=== PATIENT | male | born 1985 | race Two or more races ===

== ENCOUNTER 2021-07-24 23:22 | Inpatient (IN) ==
--- NOTE | 2021-07-24 23:30 | DR.URIAD ---
HPI Time Seen Time Seen by Provider: 07/24/21 23:28 Complaint Chief Complaint Doctors Comments: 36 y/o male has been fighting covid over the past 10 days. Presents with increasing dyspnea. Gradually worsening over the past few days. No prior h/o lung issues, does not smoke. did not receive vaccinations. Just finished steroids, azithromycin. Having fevers, chills, muscle aches. Denies N/V, but is having diarrhea. Family is ill with covid as well. Chief Complaint:: 36 y/o male diagnosed with covid 10 days ago. COVID-19 Coronavirus risk:travel/contact w/high risk person: Yes Has patient experienced Coronavirus symptoms: Yes Coronavirus symptoms experienced: Fever, Coughing and Shortness of Breath Reviewed Nurses Notes Reviewed: Yes Source History Provided: Patient Mode of Arrival Mode of Arrival: Ambulatory Quality Quality of Cough: Productive, White and Yellow Rhinorrhea: Clear Shortness of Breath: Moderate Associated Signs and Symptoms Other Signs and Symptoms: Chills, Cough, Diarrhea, Fever, Myalgias, Shortness of Breath and Wheeze PMH PMH Past Medical History: No Surgical History: Other (hernia) Social History Does patient currently use any type of tobacco product: No Have you used tobacco products in the last 12 months: No Do you use any recreational Drugs:: No ROS Review of Systems Constitutional: Chills, Fever and Weakness Eyes: No Symptoms Reported ENTM: No Symptoms Reported Respiratoy: Productive Cough, Short of Breath and Wheezing Cardiovascular: No Symptoms Reported Gastrointestinal/Abdominal: Diarrhea Genitourinary: No Symptoms Reported Neurological: Headache and Weakness Musculoskeletal: Muscle Pain Integumentary: No Symptoms Reported Hematologic/Lymphatic: No Symptoms Reported Endocrine: No Symptoms Reported Psychiatric: No Symptoms Reported All Other Systems: Reviewed and Negative PE Vital Signs Vitals: Temperature 101.1 F Pulse Rate 96 Respiratory Rate 30 Blood Pressure 121/67 O2 Sat by Pulse Oximetry 95 General Limitations: No Limitations General Appearance: Alert and In Distress Eyes Eye exam: Normal Appearance ENT ENT Exam: Normal Exam Mouth Exam: Normal Inspection Neck Neck Exam: Normal Inspection and Full ROM; negative Meningismus Respiratory Respiratory Exam: Respiratory Distress Respiratory Exam: Bilateral: Rales Cardiovascular Cardiovascular Exam: Regular Rate, Normal Rhythm and Normal Heart Sounds Extremeties Extremities Exam: Normal Inspection and Full ROM; negative Edema Back Back Exam: Normal Inspection Neurologic Neurological Exam: Alert, Oriented X3 and CN II-XII Intact; negative Motor Sensory Deficit Psychiatric Psychiatric Exam: Normal Affect Skin Skin Exam: Warm and Dry MDM Differential Diagnosis Differential Diagnosis: Pneumonia (covid, bacterial, PE) and URI COURSE Treatment Treatment: 36 y/o male diagnosed with covid, ill x 10 days. Pulse ox 79-80% on arrival. Placed on oxygen. W/u initiated. CXR with bilateral infiltrartes. CBC acceptable. Chemistries show glucose of 303 (recently finished steroids), elevated AST/ALT in the 200s. Discussed with the covering hospitalist, Dr. Quinn, will admit. ROR Labs Reviewed Laboratory Results Reviewed?: Yes Result Diagrams: 07/24/21 23:40 07/24/21 23:40 Laboratory: WBC 7.2 X10^3/uL (3.6-10.0) 07/24/21 23:40 RBC 5.58 X10^6/uL (4.7-6.0) 07/24/21 23:40 Hgb 16.1 g/dL (13.5-18.0) 07/24/21 23:40 Hct 46.0 % (42.0-54.0) 07/24/21 23:40 MCV 82.5 fL (80.0-100.0) 07/24/21 23:40 MCH 28.9 pg (27.0-34.0) 07/24/21 23:40 MCHC 35.0 g/dL (33.0-35.0) 07/24/21 23:40 RDW 13.3 % (11.6-16.5) 07/24/21 23:40 Plt Count 308 X10^3/uL (150.0-450.0) 07/24/21 23:40 MPV 8.3 fL (7.4-11.0) 07/24/21 23:40 Neut % (Auto) 80.3 % (42.0-75.0) H 07/24/21 23:40 Lymph % (Auto) 14.3 % (21.0-51.0) L 07/24/21 23:40 [place] % (Auto) 4.8 % (0.0-13.0) 07/24/21 23:40 Eos % (Auto) 0.2 % (0.9-2.9) L 07/24/21 23:40 Baso % (Auto) 0.4 % (0.2-1.0) 07/24/21 23:40 Neut # (Auto) 5.8 x10^3/uL (2.2-4.8) H 07/24/21 23:40 Lymph # (Auto) 1.0 X10^3/uL (1.3-2.9) L 07/24/21 23:40 [place] # (Auto) 0.3 x10^3/uL (0.3-0.8) 07/24/21 23:40 Eos # (Auto) 0.0 x10^3/uL (0.0-0.2) 07/24/21 23:40 Baso # (Auto) 0.0 X10^3/uL (0.0-0.1) 07/24/21 23:40 Absolute Nucleated RBC 0.3 /100WBC 07/24/21 23:40 Sample Site Lr 07/24/21 23:25 ABG pH 7.510 (7.35-7.45) H 07/24/21 23:25 ABG pCO2 30.0 mmHg (35.0-45.0) L 07/24/21 23:25 ABG pO2 45.0 mmHg (80.0-100.0) L* 07/24/21 23:25 ABG HCO3 23.9 mmol/L (22-26) 07/24/21 23:25 ABG O2 Saturation 86.0 % (90-100) L 07/24/21 23:25 ABG Base Excess 1.6 mmol/L (-2.0-2.0) 07/24/21 23:25 Cyril Test Pos 07/24/21 23:25 A-a Gradient 146.0 mmHg 07/24/21 23:25 FiO2 32.0 07/24/21 23:25 Blood Gas Comments Bart well ae 07/24/21 23:25 Sodium 128 mmol/L (136-145) L 07/24/21 23:40 Corrected Sodium 133 mmol/L (136-145) L 07/24/21 23:40 Potassium 3.8 mmol/L (3.5-5.1) 07/24/21 23:40 Chloride 93 mmol/L (98-107) L 07/24/21 23:40 Carbon Dioxide 25.4 mmol/L (21-32) 07/24/21 23:40 BUN 9 mg/dL (7-18) 07/24/21 23:40 Creatinine 1.09 mg/dL (0.70-1.30) 07/24/21 23:40 Est GFR (MDRD) Af Amer > 60 (>60) 07/24/21 23:40 Est GFR (MDRD) Non-Af > 60 (>60) 07/24/21 23:40 Glucose 307 mg/dL (65-99) H 07/24/21 23:40 Lactic Acid 1.7 mmol/L (0.4-2.0) 07/24/21 23:40 Calcium 8.1 mg/dL (8.5-10.1) L 07/24/21 23:40 Corrected Calcium 9.4 mg/dL (8.5-10.1) 07/24/21 23:40 Total Bilirubin 0.80 mg/dL (0.2-1.0) 07/24/21 23:40 AST 268 Units/L (15-37) H 07/24/21 23:40 ALT 222 Units/L (12-78) H 07/24/21 23:40 Alkaline Phosphatase 139 Units/L (46-116) H 07/24/21 23:40 Total Protein 7.7 g/dL (6.4-8.2) 07/24/21 23:40 Albumin 2.4 g/dL (3.4-5.0) L 07/24/21 23:40 Globulin 5.3 g/dL (2.5-4.5) H 07/24/21 23:40 Albumin/Globulin Ratio 0.5 Ratio (1.1-2.1) L 07/24/21 23:40 XRAY XRAY Interpreted by: Both X-ray Results: + bilateral infiltrates Opioid Opioid Risk Tool Total: 0 Total Score Risk Category: Low Risk Copyright: Donavan CHOI predicting aberrant behaviors Diagnosis Discharge Problem: Pneumonia due to COVID-19 virus, Hypoxia
[2021-07-24 23:32] LABS: ABG BASE EXCESS 1.6 mmol/L (-2.0-2.0); ABG HCO3 23.9 mmol/L (22-26)
[2021-07-24 23:33] LABS: ABG ALLEN TEST POS
[2021-07-24] MEDS ORDERED: SOLU-Medrol 125 MG VIAL IVP ONE (23:35)
[2021-07-24] MEDS ORDERED: NS 1000 ML 1,000 ML IV ONE (23:35)
[2021-07-24] MEDS ORDERED: NS 1000 ML 1,000 ML ONE (23:40)
[2021-07-24] MEDS ORDERED: SOLU-Medrol 125 MG VIAL ONE (23:40)
--- NOTE | 2021-07-25 | RAD ---
STUDY: FRONTAL VIEW CHESTCOMPARISON: NoneHISTORY: PT C/O BEING COVID+ 2 WEEKS AGO AND IS HAVING SOB AND COUGHFINDINGS:Diffuse multifocal alveolar airspace disease is seen throughout the right and left lung.The heart size is within normal limits.The mediastinum is unremarkable.There is no evidence of pleural effusion or gross pneumothorax.The trachea is midline.IMPRESSION:1. Imaging features most likely represent COVID-19 pneumonia with possible ARDS.Electronically signed by: Jose Grimes (Jul 24, 2021 23:58:26)
[2021-07-25 00:04] LABS: BASOPHILS % (AUTO) 0.4 % (0.2-1.0); EOSINOPHILS % (AUTO) 0.2 % (0.9-2.9); HEMOGLOBIN 16.1 g/dL (13.5-18.0); LYMPHOCYTES % (AUTO) 14.3 % (21.0-51.0); MEAN CORPUSCULAR HEMOGLOBIN 28.9 pg (27.0-34.0); MEAN CORPUSCULAR VOLUME 82.5 fL (80.0-100.0); MEAN PLATELET VOLUME 8.3 fL (7.4-11.0); MONOCYTES # (AUTO) 0.3 x10^3/uL (0.3-0.8); MONOCYTES % (AUTO) 4.8 % (0.0-13.0); NEUTROPHILS # (AUTO) 5.8 x10^3/uL (2.2-4.8); NEUTROPHILS % (AUTO) 80.3 % (42.0-75.0); PLATELET COUNT 308 X10^3/uL (150.0-450.0); RED BLOOD COUNT 5.58 X10^6/uL (4.7-6.0); RED CELL DISTRIBUTION WIDTH 13.3 % (11.6-16.5); WHITE BLOOD COUNT 7.2 X10^3/uL (3.6-10.0)
[2021-07-25 00:14] LABS: ALANINE AMINOTRANSFERASE 222 Units/L (12-78); ALBUMIN 2.4 g/dL (3.4-5.0); ALKALINE PHOSPHATASE 139 Units/L (46-116); ASPARTATE AMINO TRANSFERASE 268 Units/L (15-37); BLOOD UREA NITROGEN 9 mg/dL (7-18); CALCIUM 8.1 mg/dL (8.5-10.1); CARBON DIOXIDE 25.4 mmol/L (21-32); CHLORIDE 93 mmol/L (98-107); COR CA(FOR HYPOALB) 9.4 mg/dL (8.5-10.1); COR NA(FOR HYPERGLY) 133 mmol/L (136-145); CREATININE 1.09 mg/dL (0.70-1.30); SODIUM 128 mmol/L (136-145); TOTAL PROTEIN 7.7 g/dL (6.4-8.2); eGFR NON BLACK RACES > 60 (>60)
[2021-07-25 00:16] LABS: LACTIC ACID 1.7 mmol/L (0.4-2.0)
[2021-07-25] MEDS ORDERED: ZOSYN VIAL 3.375 GRAMS IV ONE ×2 (02:24→08:57)
[2021-07-25] MEDS ORDERED: NS 1000 ML 1,000 ML ONE ×2 (02:25→15:55)
[2021-07-25] MEDS ORDERED: NS 100 ML IV + SPIKE MINIBAG* 100 ML IV ONE ×3 (02:25→08:57)
[2021-07-25] MEDS: NS 1000 ML 1,000 ML IV SCH ×2 (02:32→16:45)
[2021-07-25] MEDS: LOVENOX INJ 30 MG SYR SC SCH ×3 (02:34→21:10)
[2021-07-25] MEDS ORDERED: LOVENOX INJ 30 MG SYR SC ONE ×2 (02:35→07:27)
[2021-07-25] MEDS ORDERED: NS 100 ML IV 100 ML ONE ×4 (02:37→15:57)
[2021-07-25] MEDS ORDERED: ASCORBIC ACID INJ MULTI-DOSE VIAL IV ONE ×3 (02:38→15:58)
[2021-07-25] MEDS: ASCORBIC ACID INJ MULTI-DOSE VIAL 1,500 MG in NS 100 ML IV 100 ML IV SCH ×4 (02:40→21:12)
[2021-07-25] MEDS ORDERED: REMDESIVIR 200 MG in NS 250 ML IV 250 ML IV ONE (03:31)
[2021-07-25] MEDS ORDERED: REMDESIVIR IV ONE ×2 (03:33→07:27)
[2021-07-25] MEDS ORDERED: NS 250 ML IV 250 ML IV ONE (03:34)
[2021-07-25 03:51] LABS: BASOPHILS % (AUTO) 0.3 % (0.2-1.0); HEMATOCRIT 37.6 % (42.0-54.0); HEMOGLOBIN 13.1 g/dL (13.5-18.0); LYMPHOCYTES # (AUTO) 0.8 X10^3/uL (1.3-2.9); LYMPHOCYTES % (AUTO) 9.6 % (21.0-51.0); MEAN CORPUSCULAR HEMOGLOBIN 28.6 pg (27.0-34.0); MEAN CORPUSCULAR HGB CONC 34.7 g/dL (33.0-35.0); MEAN CORPUSCULAR VOLUME 82.4 fL (80.0-100.0); MEAN PLATELET VOLUME 7.6 fL (7.4-11.0); MONOCYTES # (AUTO) 0.3 x10^3/uL (0.3-0.8); MONOCYTES % (AUTO) 3.2 % (0.0-13.0); NEUTROPHILS # (AUTO) 7.6 x10^3/uL (2.2-4.8); NEUTROPHILS % (AUTO) 86.9 % (42.0-75.0); PLATELET COUNT 350 X10^3/uL (150.0-450.0); RED BLOOD COUNT 4.57 X10^6/uL (4.7-6.0); RED CELL DISTRIBUTION WIDTH 13.3 % (11.6-16.5); WHITE BLOOD COUNT 8.7 X10^3/uL (3.6-10.0)
[2021-07-25 04:02] LABS: ALANINE AMINOTRANSFERASE 215 Units/L (12-78); ALBUMIN 2.3 g/dL (3.4-5.0); ALKALINE PHOSPHATASE 134 Units/L (46-116); ASPARTATE AMINO TRANSFERASE 227 Units/L (15-37); BLOOD UREA NITROGEN 10 mg/dL (7-18); CALCIUM 7.7 mg/dL (8.5-10.1); CARBON DIOXIDE 26.8 mmol/L (21-32); CHLORIDE 97 mmol/L (98-107); COR CA(FOR HYPOALB) 9.1 mg/dL (8.5-10.1); COR NA(FOR HYPERGLY) 137 mmol/L (136-145); CREATININE 1.05 mg/dL (0.70-1.30); SODIUM 132 mmol/L (136-145); TOTAL PROTEIN 7.1 g/dL (6.4-8.2); TROPONIN I < 0.02 ng/mL (0-1.5); eGFR NON BLACK RACES > 60 (>60)
[2021-07-25] MEDS ORDERED: SOLU-Medrol 40 MG VIAL ONE ×2 (05:28→05:32)
[2021-07-25] MEDS ORDERED: VIBRAMYCIN PO ONE ×2 (05:28→07:26)
[2021-07-25] MEDS: VIBRAMYCIN PO SCH ×2 (05:35→21:10)
[2021-07-25] MEDS ORDERED: ZOSYN VIAL 3.375 GRAMS 3.375 G in NS 100 ML IV + SPIKE MINIBAG* 100 ML IV SCH (06:00)
[2021-07-25] MEDS ORDERED: SOLU-Medrol 40 MG VIAL IVP SCH (06:00)
[2021-07-25] MEDS ORDERED: SOLU-Medrol 125 MG VIAL ONE (07:26)
[2021-07-25] MEDS ORDERED: TRICOR TAB 160 MG ONE (07:27)
[2021-07-25] MEDS ORDERED: PEPCID TAB 40 MG ONE (07:27)
[2021-07-25] MEDS ORDERED: VITAMIN D3 125 mcg (5,000 UNITS) ONE (07:27)
[2021-07-25] MEDS ORDERED: ZINC SULFATE ONE (07:27)
[2021-07-25] MEDS: PEPCID TAB 40 MG PO SCH ×2 (08:29→21:10)
[2021-07-25] MEDS: ZINC SULFATE PO SCH ×2 (08:29→21:12)
[2021-07-25] MEDS ORDERED: VITAMIN A PO SCH (09:00)
[2021-07-25] MEDS ORDERED: TRICOR TAB 160 MG PO SCH (09:00)
[2021-07-25] MEDS ORDERED: VITAMIN D (1.25MG) PO SCH (09:00)
[2021-07-25] MEDS: BROVANA IN SCH ×2 (09:10→21:32)
[2021-07-25] MEDS: PULMICORT NEB TX 0.5 MG NEB SCH ×2 (09:10→21:32)
[2021-07-25] MEDS: ZOSYN VIAL 3.375 GRAMS 3.375 G in NS 100 ML IV + SPIKE MINIBAG* 100 ML IV SCH ×2 (11:42→21:12)
--- NOTE | 2021-07-25 13:05 | CT ---
HISTORYPT C/O SOB,COUGH AND FEVER. COVID PNEUMONIA, ELEVATED D-DIMER evaluate pulmonary embolusSTUDYCTA CHESTCOMPARISONChest radiograph 07/25/2021TECHNIQUEMultiple CT axial images of the chest were obtained with IV contrast. Coronal and sagittal images were reconstructed. 3D reconstructions using axial MIPS imaging was performed and reviewed. Dose reduction techniques included Automated Exposure Control (AEC) and adjustment of mA and kV.Stenoses are measured using NASCET criteria.FINDINGSParts of the pulmonary arteries are identified to segmental branches. Few areas are not well seen because of the amount of artifact. There are no pulmonary emboli.The heart is normal in size. The pulmonary artery and aorta have a normal caliber. Mediastinal lymph nodes are likely reactive due to the patient's lung disease.The thyroid has a normal size and configuration. No axillary mass or significant axillary lymphadenopathy is identified.Bilateral patchy areas of opacity are present compatible with bronchopneumonia. No pleural effusion or pneumothorax.Limited views of the upper abdomen show no significant abnormality. No significant bone abnormality.IMPRESSION1. No pulmonary emboli2. Bronchopneumonia with reactive lymphadenopathyElectronically signed by: Seferino Barry (Jul 25, 2021 13:03:51)
--- NOTE | 2021-07-25 13:05 | RAD ---
HISTORYCOVID-19 pneumoniaSTUDYPortable AP [id number]/2020FINDINGSStable normal heart size with similar extent and distribution of bilateral infiltrates. No evidence for developing pleural fluid or pneumothorax.IMPRESSIONNo change in appearance of bilateral pneumonia.Electronically signed by: PRIYANKA AYALA (Jul 25, 2021 13:02:49)
[2021-07-25] MEDS: SOLU-Medrol 125 MG VIAL IVP SCH ×2 (13:45→21:10)
[2021-07-25] MEDS ORDERED: SOLU-Medrol 125 MG VIAL IVP SCH (14:00)
--- NOTE | 2021-07-25 15:06 | DR.H&P ---
H&P History & Physical for Day of: H&P Date: 07/25/21 Chief Complaint Chief Complaint: cough, shortness of breath Allergies Allergies Allergy/AdvReac Type Severity Reaction Status Date / Time No Known Drug Allergies Allergy Verified 07/25/21 00:18 History of Present Illness History of Present Illness: Mr Ann is a 36y/o male with no pertinent medical history presented with worsening dyspnea and cough. He tested positive for covid around 10 days ago and was being treated outpatient. He completed a z-pack and steroids. He states his breathing got worse so he had to come to the ER. He is currently on NRB at 15L. He did have a fever, temp 101.2 earlier but afebrile right now. He states he feels much better. ER work-up - Labs: WBC:8.7 Hgb: 13.1 Glucose 313 Na: 132 Cl 97 lactic acid: 1.7 D-dimer: 1.19 - Trop (-) AST/ALT: 227/215 - AB.51/30/45/23 - CXR: covid pneumonia Plan: admit to icu with covid protocol. Wean O2 as tolerated to keep sats >92%. Order CTA to rule out PE. Continue nebs, pulmicort and IS. Continue IV Solumedrol, Zosyn, Remdesivir and doxycycline. Continue lovenox and vitamin support. Continue hydration. Will add SSI. Monitor AM labs/imaging. Time spent for clinical assessment, reviewing labs/imaging, physical exam, decision making and documentation greater than 75 mins. Past Surgical History Surgical History: Other (hernia) Social History Does patient currently use any type of tobacco product: No Have you used tobacco products in the last 12 months: No Type of Tobacco Use: None Does any household member use tobacco: No Alcohol Use: None Drug Use: None Prescription drug monitoring program results: PDMP reviewed and no concerns identified Medications Home Medications: No Known Drug Allergies Allergy (Verified 07/25/21 00:18) Labs Result Diagrams: 07/25/21 03:42 07/25/21 03:42 Labs: Laboratory WBC 8.7 X10^3/uL (3.6-10.0) 07/25/21 03:42 RBC 4.57 X10^6/uL (4.7-6.0) L 07/25/21 03:42 Hgb 13.1 g/dL (13.5-18.0) L D 07/25/21 03:42 Hct 37.6 % (42.0-54.0) L 07/25/21 03:42 MCV 82.4 fL (80.0-100.0) 07/25/21 03:42 MCH 28.6 pg (27.0-34.0) 07/25/21 03:42 MCHC 34.7 g/dL (33.0-35.0) 07/25/21 03:42 RDW 13.3 % (11.6-16.5) 07/25/21 03:42 Plt Count 350 X10^3/uL (150.0-450.0) 07/25/21 03:42 MPV 7.6 fL (7.4-11.0) 07/25/21 03:42 Neut % (Auto) 86.9 % (42.0-75.0) H 07/25/21 03:42 Lymph % (Auto) 9.6 % (21.0-51.0) L 07/25/21 03:42 [place] % (Auto) 3.2 % (0.0-13.0) 07/25/21 03:42 Eos % (Auto) 0.0 % (0.9-2.9) L 07/25/21 03:42 Baso % (Auto) 0.3 % (0.2-1.0) 07/25/21 03:42 Neut # (Auto) 7.6 x10^3/uL (2.2-4.8) H 07/25/21 03:42 Lymph # (Auto) 0.8 X10^3/uL (1.3-2.9) L 07/25/21 03:42 [place] # (Auto) 0.3 x10^3/uL (0.3-0.8) 07/25/21 03:42 Eos # (Auto) 0.0 x10^3/uL (0.0-0.2) 07/25/21 03:42 Baso # (Auto) 0.0 X10^3/uL (0.0-0.1) 07/25/21 03:42 Absolute Nucleated RBC 0.1 /100WBC 07/25/21 03:42 D-Dimer 1.19 ug/ml (0.0-0.57) H* 07/25/21 10:30 Sample Site Lr 07/24/21 23:25 ABG pH 7.510 (7.35-7.45) H 07/24/21 23:25 ABG pCO2 30.0 mmHg (35.0-45.0) L 07/24/21 23:25 ABG pO2 45.0 mmHg (80.0-100.0) L* 07/24/21 23:25 ABG HCO3 23.9 mmol/L (22-26) 07/24/21 23:25 ABG O2 Saturation 86.0 % (90-100) L 07/24/21 23:25 ABG Base Excess 1.6 mmol/L (-2.0-2.0) 07/24/21 23:25 Cyril Test Pos 07/24/21 23:25 A-a Gradient 146.0 mmHg 07/24/21 23:25 FiO2 32.0 07/24/21 23:25 Blood Gas Comments Bart well ae 07/24/21 23:25 Sodium 132 mmol/L (136-145) L 07/25/21 03:42 Corrected Sodium 137 mmol/L (136-145) 07/25/21 03:42 Potassium 4.1 mmol/L (3.5-5.1) 07/25/21 03:42 Chloride 97 mmol/L (98-107) L 07/25/21 03:42 Carbon Dioxide 26.8 mmol/L (21-32) 07/25/21 03:42 BUN 10 mg/dL (7-18) 07/25/21 03:42 Creatinine 1.05 mg/dL (0.70-1.30) 07/25/21 03:42 Est GFR (MDRD) Af Amer > 60 (>60) 07/25/21 03:42 Est GFR (MDRD) Non-Af > 60 (>60) 07/25/21 03:42 Glucose 313 mg/dL (65-99) H 07/25/21 03:42 Lactic Acid 1.7 mmol/L (0.4-2.0) 07/24/21 23:40 Calcium 7.7 mg/dL (8.5-10.1) L 07/25/21 03:42 Corrected Calcium 9.1 mg/dL (8.5-10.1) 07/25/21 03:42 Total Bilirubin 0.70 mg/dL (0.2-1.0) 07/25/21 03:42 AST 227 Units/L (15-37) H 07/25/21 03:42 ALT 215 Units/L (12-78) H 07/25/21 03:42 Alkaline Phosphatase 134 Units/L (46-116) H 07/25/21 03:42 Troponin I < 0.02 ng/mL (0-1.5) 07/25/21 03:42 Total Protein 7.1 g/dL (6.4-8.2) 07/25/21 03:42 Albumin 2.3 g/dL (3.4-5.0) L 07/25/21 03:42 Globulin 4.8 g/dL (2.5-4.5) H 07/25/21 03:42 Albumin/Globulin Ratio 0.5 Ratio (1.1-2.1) L 07/25/21 03:42 SARS-CoV-2 (PCR) Positive (NEGATIVE) A 07/25/21 01:46 Influenza Type A (PCR) Negative (NEGATIVE) 07/25/21 01:46 Influenza Type B (PCR) Negative (NEGATIVE) 07/25/21 01:46 RSV (PCR) Negative (NEGATIVE) 07/25/21 01:46 Review of Systems Constitutional: Fever, Chills, Weakness and Malaise Eyes: No Symptoms Reported ENT: No Symptoms Reported Respiratory: Cough, Shortness of Breath and SOB with Excertion Cardiovascular: No Symptoms Reported Gastrointestinal: No Symptoms Reported Genitourinary: No Symptoms Reported Musculoskeletal: No Symptoms Reported Skin: No Symptoms Reported Neurological: No Symptoms Reported Physical Exam Vital Signs: Temperature 97.8 F Pulse Rate [Left Brachial] 83 Pulse Rate 81 Respiratory Rate 20 Blood Pressure [Left Arm] 133/73 Blood Pressure 117/59 O2 Sat by Pulse Oximetry 96 Oriented: Normal Eyes: Normal Ear: Normal Nose: Normal Throat: Normal Respiratory: Diminished Throughout and Wheezes Throughout Cardiovascular: Normal Auscultation: Bowel Sounds: Normal Palpation: Normal Tenderness: Normal Skin: Normal Musculoskeletal: Normal Psychiatric: Normal Mood Description: Calm Speech Pattern: Clear and Appropriate Assessment/Plan (1) Pneumonia due to COVID-19 virus: Status: Acute (2) Acute respiratory failure with hypoxia: Status: Acute Review H&P Reviewed: Yes Patient was examined?: Yes
[2021-07-25] MEDS ORDERED: HumuLIN R ONE (16:13)
[2021-07-25] MEDS: HumuLIN R SC PRN ×2 (16:14→22:28)
[2021-07-26] MEDS: NS 1000 ML 1,000 ML IV SCH (03:21)
[2021-07-26] MEDS: ASCORBIC ACID INJ MULTI-DOSE VIAL 1,500 MG in NS 100 ML IV 100 ML IV SCH ×4 (03:21→22:00)
[2021-07-26] MEDS: SOLU-Medrol 125 MG VIAL IVP SCH ×3 (05:37→22:01)
[2021-07-26] MEDS: ZOSYN VIAL 3.375 GRAMS 3.375 G in NS 100 ML IV + SPIKE MINIBAG* 100 ML IV SCH ×3 (05:37→22:00)
[2021-07-26 06:22] LABS: BASOPHILS % (AUTO) 0.3 % (0.2-1.0); HEMATOCRIT 36.6 % (42.0-54.0); HEMOGLOBIN 12.5 g/dL (13.5-18.0); LYMPHOCYTES # (AUTO) 1.4 X10^3/uL (1.3-2.9); MEAN CORPUSCULAR HEMOGLOBIN 29.3 pg (27.0-34.0); MEAN CORPUSCULAR HGB CONC 34.3 g/dL (33.0-35.0); MEAN CORPUSCULAR VOLUME 85.6 fL (80.0-100.0); MEAN PLATELET VOLUME 8.1 fL (7.4-11.0); MONOCYTES % (AUTO) 7.3 % (0.0-13.0); NEUTROPHILS # (AUTO) 11.7 x10^3/uL (2.2-4.8); NEUTROPHILS % (AUTO) 82.4 % (42.0-75.0); PLATELET COUNT 426 X10^3/uL (150.0-450.0); RED BLOOD COUNT 4.28 X10^6/uL (4.7-6.0); RED CELL DISTRIBUTION WIDTH 13.4 % (11.6-16.5); WHITE BLOOD COUNT 14.2 X10^3/uL (3.6-10.0)
[2021-07-26 06:34] LABS: ALANINE AMINOTRANSFERASE 185 Units/L (12-78); ALBUMIN 2.1 g/dL (3.4-5.0); ALKALINE PHOSPHATASE 121 Units/L (46-116); ASPARTATE AMINO TRANSFERASE 88 Units/L (15-37); BLOOD UREA NITROGEN 17 mg/dL (7-18); CALCIUM 8.3 mg/dL (8.5-10.1); CARBON DIOXIDE 26.4 mmol/L (21-32); CHLORIDE 101 mmol/L (98-107); COR CA(FOR HYPOALB) 9.8 mg/dL (8.5-10.1); COR NA(FOR HYPERGLY) 141 mmol/L (136-145); CREATININE 0.91 mg/dL (0.70-1.30); SODIUM 136 mmol/L (136-145); TOTAL PROTEIN 6.6 g/dL (6.4-8.2); eGFR NON BLACK RACES > 60 (>60)
[2021-07-26] MEDS: HumuLIN R SC PRN ×4 (06:35→21:45)
--- NOTE | 2021-07-26 07:58 | RAD ---
HISTORYCOVID PNEUMONIASTUDYCHEST, 1 [id number] bilateral areas of opacity represent bronchopneumonia. There may be a slight progression since yesterday.No significant pleural effusion or pneumothorax.The heart size is magnified.Bones are unremarkable.IMPRESSION1. Progressed bronchopneumoniaElectronically signed by: Seferino Barry (Jul 26, 2021 07:56:44)
[2021-07-26] MEDS ORDERED: NS 50 ML IV 50 ML IV ONE (08:22)
[2021-07-26] MEDS: VIBRAMYCIN PO SCH ×2 (08:30→21:59)
[2021-07-26] MEDS: PEPCID TAB 40 MG PO SCH ×2 (08:30→21:58)
[2021-07-26] MEDS: BROVANA IN SCH ×2 (08:45→20:40)
[2021-07-26] MEDS: PULMICORT NEB TX 0.5 MG NEB SCH ×2 (08:45→20:40)
[2021-07-26 09:51] LABS: ABG ALLEN TEST POS; ABG BASE EXCESS 0.6 mmol/L (-2.0-2.0); ABG HCO3 24.5 mmol/L (22-26)
[2021-07-26] MEDS: REMDESIVIR 100 MG in NS 100 ML IV + SPIKE MINIBAG* 120 ML IV SCH (10:10)
[2021-07-26] MEDS: LOVENOX INJ 30 MG SYR SC SCH ×2 (12:15→21:59)
[2021-07-26] MEDS: ZINC SULFATE PO SCH ×2 (12:15→21:59)
--- NOTE | 2021-07-26 16:19 | PCM.PROG ---
Progress Note Progress Note for Day of Date of Exam: 07/26/21 Subjective Subjective: Patient seen at bedside, no acute events overnight. He states he feels better. He has some productive cough. Denies fever or chills. His appetite is better. He is still on 100% non-rebreather. His sats right now are between 85-88%. He does not appear to be in any distress. Denies N/V/D. Labs: WBC: 14.2 Hgb 12.5 Glucose 309 BUN/Cr: 17/0.91 CTA: no PE, bilateral opacities CXR: increase in bronchopneumonia Plan: Will switch to HHFNC to keep sats > 92%. Repeat ABG. Continue nebs, pulmicort and IS. Continue IV antibiotics, Remdesivir and Solumedrol. Continue vitamin support and lovenox. Monitor AM labs and imaging. Time spent for clinical assessment, reviewing labs/imaging, physical exam, decision making greater than 45 mins. Past Medical Family Social History Past Med/Fam/Surg Hx: No changes since H&P Allergies: Allergies No Known Drug Allergies Allergy (Verified 07/25/21 00:18) Review of Systems ROS: No change since H&P Vital Signs and I&O's Vital Signs: Temperature 98.4 F Pulse Rate [Left Brachial] 72 Pulse Rate 89 Respiratory Rate 18 Blood Pressure [Left Arm] 114/64 Blood Pressure 117/59 O2 Sat by Pulse Oximetry 91 Intake and Output: Intake & Output 07/23/21 07/24/21 07/25/21 07/26/21 23:59 23:59 23:59 23:59 Intake Total 4504 / 4504 525 / 525 Balance 4504 / 4504 525 / 525 Physical Exam Oriented: Normal Eyes: Normal Ear: Normal Nose: Normal Throat: Normal Respiratory: Generalized and Diminished Cardiovascular: Normal Auscultation: Bowel Sounds: Normal Tenderness: Normal Skin: Normal Musculoskeletal: Normal Psychiatric: Normal Mood Description: Calm Speech Pattern: Clear and Appropriate Laboratory and Diagnostics Result Diagrams: 07/26/21 05:30 07/26/21 05:30 Labs: 07/24/21 23:49 Blood Blood Culture - Preliminary 07/24/21 23:40 Blood Blood Culture - Preliminary Laboratory WBC 14.2 X10^3/uL (3.6-10.0) H 07/26/21 05:30 RBC 4.28 X10^6/uL (4.7-6.0) L 07/26/21 05:30 Hgb 12.5 g/dL (13.5-18.0) L 07/26/21 05:30 Hct 36.6 % (42.0-54.0) L 07/26/21 05:30 MCV 85.6 fL (80.0-100.0) 07/26/21 05:30 MCH 29.3 pg (27.0-34.0) 07/26/21 05:30 MCHC 34.3 g/dL (33.0-35.0) 07/26/21 05:30 RDW 13.4 % (11.6-16.5) 07/26/21 05:30 Plt Count 426 X10^3/uL (150.0-450.0) 07/26/21 05:30 MPV 8.1 fL (7.4-11.0) 07/26/21 05:30 Neut % (Auto) 82.4 % (42.0-75.0) H 07/26/21 05:30 Lymph % (Auto) 10.0 % (21.0-51.0) L 07/26/21 05:30 [place] % (Auto) 7.3 % (0.0-13.0) 07/26/21 05:30 Eos % (Auto) 0.0 % (0.9-2.9) L 07/26/21 05:30 Baso % (Auto) 0.3 % (0.2-1.0) 07/26/21 05:30 Neut # (Auto) 11.7 x10^3/uL (2.2-4.8) H 07/26/21 05:30 Lymph # (Auto) 1.4 X10^3/uL (1.3-2.9) 07/26/21 05:30 [place] # (Auto) 1.0 x10^3/uL (0.3-0.8) H 07/26/21 05:30 Eos # (Auto) 0.0 x10^3/uL (0.0-0.2) 07/26/21 05:30 Baso # (Auto) 0.0 X10^3/uL (0.0-0.1) 07/26/21 05:30 Absolute Nucleated RBC 0.1 /100WBC 07/26/21 05:30 D-Dimer 1.19 ug/ml (0.0-0.57) H* 07/25/21 10:30 Sample Site Lr 07/26/21 09:45 ABG pH 7.440 (7.35-7.45) 07/26/21 09:45 ABG pCO2 36.0 mmHg (35.0-45.0) 07/26/21 09:45 ABG pO2 55.0 mmHg (80.0-100.0) L 07/26/21 09:45 ABG HCO3 24.5 mmol/L (22-26) 07/26/21 09:45 ABG O2 Saturation 89.0 % (90-100) L 07/26/21 09:45 ABG Base Excess 0.6 mmol/L (-2.0-2.0) 07/26/21 09:45 Cyril Test Pos 07/26/21 09:45 A-a Gradient 613.0 mmHg 07/26/21 09:45 FiO2 100.0 07/26/21 09:45 Blood Gas Comments Pt roberto well cdn 07/26/21 09:45 Sodium 136 mmol/L (136-145) 07/26/21 05:30 Corrected Sodium 141 mmol/L (136-145) 07/26/21 05:30 Potassium 3.7 mmol/L (3.5-5.1) 07/26/21 05:30 Chloride 101 mmol/L (98-107) 07/26/21 05:30 Carbon Dioxide 26.4 mmol/L (21-32) 07/26/21 05:30 BUN 17 mg/dL (7-18) 07/26/21 05:30 Creatinine 0.91 mg/dL (0.70-1.30) 07/26/21 05:30 Est GFR (MDRD) Af Amer > 60 (>60) 07/26/21 05:30 Est GFR (MDRD) Non-Af > 60 (>60) 07/26/21 05:30 Glucose 309 mg/dL (65-99) H 07/26/21 05:30 POC Glucose (mg/dL) 342 mg/dL (65-99) H 07/26/21 12:16 Lactic Acid 1.7 mmol/L (0.4-2.0) 07/24/21 23:40 Calcium 8.3 mg/dL (8.5-10.1) L 07/26/21 05:30 Corrected Calcium 9.8 mg/dL (8.5-10.1) 07/26/21 05:30 Total Bilirubin 0.50 mg/dL (0.2-1.0) 07/26/21 05:30 AST 88 Units/L (15-37) H 07/26/21 05:30 ALT 185 Units/L (12-78) H 07/26/21 05:30 Alkaline Phosphatase 121 Units/L (46-116) H 07/26/21 05:30 Troponin I < 0.02 ng/mL (0-1.5) 07/25/21 03:42 C-Reactive Protein 129.90 mg/L (0-3.0) H 07/26/21 05:30 Total Protein 6.6 g/dL (6.4-8.2) 07/26/21 05:30 Albumin 2.1 g/dL (3.4-5.0) L 07/26/21 05:30 Globulin 4.5 g/dL (2.5-4.5) 07/26/21 05:30 Albumin/Globulin Ratio 0.5 Ratio (1.1-2.1) L 07/26/21 05:30 SARS-CoV-2 (PCR) Positive (NEGATIVE) A 07/25/21 01:46 Influenza Type A (PCR) Negative (NEGATIVE) 07/25/21 01:46 Influenza Type B (PCR) Negative (NEGATIVE) 07/25/21 01:46 RSV (PCR) Negative (NEGATIVE) 07/25/21 01:46 Plan (1) Pneumonia due to COVID-19 virus: Status: Acute (2) Acute respiratory failure with hypoxia: Status: Acute
[2021-07-27] MEDS: NS 1000 ML 1,000 ML IV SCH (02:43)
[2021-07-27] MEDS: SOLU-Medrol 125 MG VIAL IVP SCH ×4 (02:43→21:03)
[2021-07-27] MEDS: ASCORBIC ACID INJ MULTI-DOSE VIAL 1,500 MG in NS 100 ML IV 100 ML IV SCH ×4 (02:43→21:04)
[2021-07-27 05:08] LABS: BASOPHILS % (AUTO) 0.2 % (0.2-1.0); HEMATOCRIT 36.9 % (42.0-54.0); LYMPHOCYTES # (AUTO) 1.5 X10^3/uL (1.3-2.9); LYMPHOCYTES % (AUTO) 7.9 % (21.0-51.0); MEAN CORPUSCULAR HEMOGLOBIN 29.6 pg (27.0-34.0); MEAN CORPUSCULAR HGB CONC 35.1 g/dL (33.0-35.0); MEAN CORPUSCULAR VOLUME 84.3 fL (80.0-100.0); MEAN PLATELET VOLUME 8.1 fL (7.4-11.0); MONOCYTES # (AUTO) 0.7 x10^3/uL (0.3-0.8); MONOCYTES % (AUTO) 3.9 % (0.0-13.0); NEUTROPHILS # (AUTO) 16.7 x10^3/uL (2.2-4.8); PLATELET COUNT 476 X10^3/uL (150.0-450.0); RED BLOOD COUNT 4.38 X10^6/uL (4.7-6.0); RED CELL DISTRIBUTION WIDTH 13.1 % (11.6-16.5); WHITE BLOOD COUNT 18.9 X10^3/uL (3.6-10.0)
[2021-07-27 05:38] LABS: ALANINE AMINOTRANSFERASE 138 Units/L (12-78); ALBUMIN 2.1 g/dL (3.4-5.0); ALKALINE PHOSPHATASE 108 Units/L (46-116); ASPARTATE AMINO TRANSFERASE 46 Units/L (15-37); BLOOD UREA NITROGEN 18 mg/dL (7-18); CALCIUM 8.3 mg/dL (8.5-10.1); CARBON DIOXIDE 25.9 mmol/L (21-32); CHLORIDE 103 mmol/L (98-107); COR CA(FOR HYPOALB) 9.8 mg/dL (8.5-10.1); COR NA(FOR HYPERGLY) 141 mmol/L (136-145); CREATININE 1.04 mg/dL (0.70-1.30); SODIUM 138 mmol/L (136-145); TOTAL PROTEIN 6.3 g/dL (6.4-8.2); eGFR NON BLACK RACES > 60 (>60)
[2021-07-27] MEDS: ZOSYN VIAL 3.375 GRAMS 3.375 G in NS 100 ML IV + SPIKE MINIBAG* 100 ML IV SCH (05:45)
--- NOTE | 2021-07-27 07:57 | RAD ---
HISTORYCOVID PNEUMONIASTUDYCHEST, 1 [id number]/2021FINDINGSThe cardiomediastinal silhouette is stable. Similar bilateral airspace opacities. The bony thorax appears intact.IMPRESSIONNo significant change.Electronically signed by: ANGELO CLEMENTS (Jul 27, 2021 07:54:40)
[2021-07-27] MEDS: PEPCID TAB 40 MG PO SCH ×2 (08:54→21:02)
[2021-07-27] MEDS: LOVENOX INJ 40 MG SYR SC SCH ×2 (08:55→21:03)
[2021-07-27] MEDS: VITAMIN D3 125 mcg (5,000 UNITS) PO SCH (08:55)
[2021-07-27] MEDS: VIBRAMYCIN PO SCH ×2 (08:55→21:03)
[2021-07-27] MEDS: ZINC SULFATE PO SCH ×2 (08:55→21:03)
[2021-07-27] MEDS: VITAMIN A PO SCH (08:55)
[2021-07-27] MEDS: REMDESIVIR 100 MG in NS 100 ML IV + SPIKE MINIBAG* 120 ML IV SCH (08:56)
[2021-07-27] MEDS: BROVANA IN SCH ×2 (09:55→21:40)
[2021-07-27] MEDS: PULMICORT NEB TX 0.5 MG NEB SCH ×2 (09:55→21:40)
--- NOTE | 2021-07-27 10:30 | PCM.PROG ---
Progress Note Progress Note for Day of Date of Exam: 07/27/21 Subjective Subjective: Patient seen at bedside, no acute events overnight. He states he feels better. He is still on NRB at 100%. He has been having productive cough. His sats at this time are between 78-81%. He does not appear to be in any distress. He reports normal appetite. Labs: WBC: 18.9 Hgb 13.0 Glucose 309 BUN/Cr: 18/1.04 Glucose 222 CRP: 72 AST/ALT: 46/138 AB.44/36/55/24.5 CTA: no PE, bilateral opacities CXR: unchanged bilateral pna Plan: Will switch to HHFNC to keep sats > 92%. Continue nebs, pulmicort and IS. Continue IV antibiotics, Remdesivir and Solumedrol. Continue vitamin support and lovenox. Continue insulin for hyperglycemia. Monitor AM labs and imaging. Time spent for clinical assessment, reviewing labs/imaging, physical exam, decision making greater than 45 mins. Past Medical Family Social History Past Med/Fam/Surg Hx: No changes since H&P Allergies: Allergies No Known Drug Allergies Allergy (Verified 07/25/21 00:18) Review of Systems ROS: No change since H&P Vital Signs and I&O's Vital Signs: Temperature 97.8 F Pulse Rate [Left Brachial] 72 Pulse Rate 69 Respiratory Rate 20 Blood Pressure [Left Arm] 122/79 Blood Pressure 117/59 O2 Sat by Pulse Oximetry 86 Intake and Output: Intake & Output 07/24/21 07/25/21 07/26/21 07/27/21 23:59 23:59 23:59 23:59 Intake Total 4504 / 4504 6439 / 6439 560 / 560 Balance 4504 / 4504 6439 / 6439 560 / 560 Physical Exam Oriented: Normal Eyes: Normal Ear: Normal Nose: Normal Throat: Normal Respiratory: Generalized and Diminished Cardiovascular: Normal Auscultation: Bowel Sounds: Normal Tenderness: Normal Skin: Normal Musculoskeletal: Normal Psychiatric: Normal Mood Description: Calm Speech Pattern: Clear and Appropriate Laboratory and Diagnostics Result Diagrams: 07/27/21 04:35 07/27/21 04:35 Labs: 07/24/21 23:49 Blood Blood Culture - Preliminary 07/24/21 23:40 Blood Blood Culture - Preliminary Laboratory WBC 18.9 X10^3/uL (3.6-10.0) H 07/27/21 04:35 RBC 4.38 X10^6/uL (4.7-6.0) L 07/27/21 04:35 Hgb 13.0 g/dL (13.5-18.0) L 07/27/21 04:35 Hct 36.9 % (42.0-54.0) L 07/27/21 04:35 MCV 84.3 fL (80.0-100.0) 07/27/21 04:35 MCH 29.6 pg (27.0-34.0) 07/27/21 04:35 MCHC 35.1 g/dL (33.0-35.0) H 07/27/21 04:35 RDW 13.1 % (11.6-16.5) 07/27/21 04:35 Plt Count 476 X10^3/uL (150.0-450.0) H 07/27/21 04:35 Plt Count Comment Cancelled 07/27/21 04:35 MPV 8.1 fL (7.4-11.0) 07/27/21 04:35 Neut % (Auto) 88.0 % (42.0-75.0) H 07/27/21 04:35 Lymph % (Auto) 7.9 % (21.0-51.0) L 07/27/21 04:35 [place] % (Auto) 3.9 % (0.0-13.0) 07/27/21 04:35 Eos % (Auto) 0.0 % (0.9-2.9) L 07/27/21 04:35 Baso % (Auto) 0.2 % (0.2-1.0) 07/27/21 04:35 Neut # (Auto) 16.7 x10^3/uL (2.2-4.8) H 07/27/21 04:35 Lymph # (Auto) 1.5 X10^3/uL (1.3-2.9) 07/27/21 04:35 [place] # (Auto) 0.7 x10^3/uL (0.3-0.8) 07/27/21 04:35 Eos # (Auto) 0.0 x10^3/uL (0.0-0.2) 07/27/21 04:35 Baso # (Auto) 0.0 X10^3/uL (0.0-0.1) 07/27/21 04:35 Absolute Nucleated RBC 0.1 /100WBC 07/27/21 04:35 Total Counted Cancelled 07/27/21 04:35 Neutrophils % (Manual) Cancelled 07/27/21 04:35 Band Neutrophils % Cancelled 07/27/21 04:35 Lymphocytes % (Manual) Cancelled 07/27/21 04:35 Monocytes % (Manual) Cancelled 07/27/21 04:35 Eosinophils % (Manual) Cancelled 07/27/21 04:35 Basophils % (Manual) Cancelled 07/27/21 04:35 Metamyelocytes % Cancelled 07/27/21 04:35 Myelocytes % Cancelled 07/27/21 04:35 Promyelocytes % Cancelled 07/27/21 04:35 Nucleated RBCs Cancelled 07/27/21 04:35 Atypical Lymphocytes Cancelled 07/27/21 04:35 Blast Cells Cancelled 07/27/21 04:35 Smudge Cells Cancelled 07/27/21 04:35 Toxic Granulation Cancelled 07/27/21 04:35 Dohle Bodies Cancelled 07/27/21 04:35 Pat Rods Cancelled 07/27/21 04:35 Plt Clumps, EDTA Cancelled 07/27/21 04:35 Giant Platelets Cancelled 07/27/21 04:35 Plt Morphology Comment Cancelled 07/27/21 04:35 RBC Morphology Cancelled 07/27/21 04:35 Dimorphic RBCs Cancelled 07/27/21 04:35 Polychromasia Cancelled 07/27/21 04:35 Hypochromasia Cancelled 07/27/21 04:35 Poikilocytosis Cancelled 07/27/21 04:35 Basophilic Stippling Cancelled 07/27/21 04:35 Anisocytosis Cancelled 07/27/21 04:35 Microcytosis Cancelled 07/27/21 04:35 Macrocytosis Cancelled 07/27/21 04:35 Spherocytes Cancelled 07/27/21 04:35 Pappenheimer Bodies Cancelled 07/27/21 04:35 Sickle Cells Cancelled 07/27/21 04:35 Target Cells Cancelled 07/27/21 04:35 Tear Drop Cells Cancelled 07/27/21 04:35 Ovalocytes Cancelled 07/27/21 04:35 Stomatocytes Cancelled 07/27/21 04:35 Helmet Cells Cancelled 07/27/21 04:35 [place] Bodies Cancelled 07/27/21 04:35 [place] Rings Cancelled 07/27/21 04:35 [place] Cells Cancelled 07/27/21 04:35 Crenated Cell Cancelled 07/27/21 04:35 Acanthocytes (Spur) Cancelled 07/27/21 04:35 Rouleaux Cancelled 07/27/21 04:35 Schistocytes Cancelled 07/27/21 04:35 D-Dimer 1.19 ug/ml (0.0-0.57) H* 07/25/21 10:30 Sample Site Lr 07/26/21 09:45 ABG pH 7.440 (7.35-7.45) 07/26/21 09:45 ABG pCO2 36.0 mmHg (35.0-45.0) 07/26/21 09:45 ABG pO2 55.0 mmHg (80.0-100.0) L 07/26/21 09:45 ABG HCO3 24.5 mmol/L (22-26) 07/26/21 09:45 ABG O2 Saturation 89.0 % (90-100) L 07/26/21 09:45 ABG Base Excess 0.6 mmol/L (-2.0-2.0) 07/26/21 09:45 Cyril Test Pos 07/26/21 09:45 A-a Gradient 613.0 mmHg 07/26/21 09:45 FiO2 100.0 07/26/21 09:45 Blood Gas Comments Pt roberto well cdn 07/26/21 09:45 Sodium 138 mmol/L (136-145) 07/27/21 04:35 Corrected Sodium 141 mmol/L (136-145) 07/27/21 04:35 Potassium 3.5 mmol/L (3.5-5.1) 07/27/21 04:35 Chloride 103 mmol/L (98-107) 07/27/21 04:35 Carbon Dioxide 25.9 mmol/L (21-32) 07/27/21 04:35 BUN 18 mg/dL (7-18) 07/27/21 04:35 Creatinine 1.04 mg/dL (0.70-1.30) 07/27/21 04:35 Est GFR (MDRD) Af Amer > 60 (>60) 07/27/21 04:35 Est GFR (MDRD) Non-Af > 60 (>60) 07/27/21 04:35 Glucose 222 mg/dL (65-99) H 07/27/21 04:35 POC Glucose (mg/dL) 197 mg/dL (65-99) H 07/27/21 05:52 Lactic Acid 1.7 mmol/L (0.4-2.0) 07/24/21 23:40 Calcium 8.3 mg/dL (8.5-10.1) L 07/27/21 04:35 Corrected Calcium 9.8 mg/dL (8.5-10.1) 07/27/21 04:35 Total Bilirubin 0.40 mg/dL (0.2-1.0) 07/27/21 04:35 AST 46 Units/L (15-37) H 07/27/21 04:35 ALT 138 Units/L (12-78) H 07/27/21 04:35 Alkaline Phosphatase 108 Units/L (46-116) 07/27/21 04:35 Troponin I < 0.02 ng/mL (0-1.5) 07/25/21 03:42 C-Reactive Protein 72.20 mg/L (0-3.0) H 07/26/21 23:40 Total Protein 6.3 g/dL (6.4-8.2) L 07/27/21 04:35 Albumin 2.1 g/dL (3.4-5.0) L 07/27/21 04:35 Globulin 4.2 g/dL (2.5-4.5) 07/27/21 04:35 Albumin/Globulin Ratio 0.5 Ratio (1.1-2.1) L 07/27/21 04:35 SARS-CoV-2 (PCR) Positive (NEGATIVE) A 07/25/21 01:46 Influenza Type A (PCR) Negative (NEGATIVE) 07/25/21 01:46 Influenza Type B (PCR) Negative (NEGATIVE) 07/25/21 01:46 RSV (PCR) Negative (NEGATIVE) 07/25/21 01:46 Plan (1) Pneumonia due to COVID-19 virus: Status: Acute (2) Acute respiratory failure with hypoxia: Status: Acute (3) Hyperglycemia: Status: Acute
[2021-07-27] MEDS: HumuLIN R SC PRN ×3 (13:08→23:35)
[2021-07-27] MEDS: ZOSYN VIAL 4.5 GRAMS 4.5 G in NS 100 ML IV + SPIKE MINIBAG* 100 ML IV SCH ×2 (15:05→21:05)
[2021-07-28] MEDS ORDERED: K-DUR TAB 20 MEQ PO PRN (00:55)
[2021-07-28] MEDS ORDERED: KLOR-CON PO PRN (00:55)
[2021-07-28] MEDS ORDERED: POTASSIUM CHLORIDE LIQ 20 MEQ UDC PO PRN (00:55)
[2021-07-28] MEDS ORDERED: MICRO K EXTEN CAP 10 MEQ PO PRN (00:55)
[2021-07-28] MEDS ORDERED: K-RIDER 10 MEQ/NS 100 ML 10 MEQ/100 ML BAG IV PRN (00:55)
[2021-07-28] MEDS ORDERED: POTASSIUM CHL 40 MEQ/NS 0.45% 500 ML IV PRN (00:55)
[2021-07-28] MEDS ORDERED: POTASSIUM CHL 60 MEQ/NS 0.45% 500 ML IV PRN (00:55)
[2021-07-28] MEDS ORDERED: MAGNESIUM SULFATE 1 GRAM/100 mL PREMIX 1 GM/100 ML BAG IV PRN (00:55)
[2021-07-28] MEDS: SOLU-Medrol 125 MG VIAL IVP SCH ×4 (02:31→21:29)
[2021-07-28] MEDS: ASCORBIC ACID INJ MULTI-DOSE VIAL 1,500 MG in NS 100 ML IV 100 ML IV SCH ×4 (02:31→21:17)
[2021-07-28] MEDS: NS 1000 ML 1,000 ML IV SCH (03:26)
[2021-07-28 05:22] LABS: ALANINE AMINOTRANSFERASE 122 Units/L (12-78); ALBUMIN 2.4 g/dL (3.4-5.0); ALKALINE PHOSPHATASE 123 Units/L (46-116); ASPARTATE AMINO TRANSFERASE 39 Units/L (15-37); BLOOD UREA NITROGEN 19 mg/dL (7-18); CALCIUM 8.4 mg/dL (8.5-10.1); CARBON DIOXIDE 26.2 mmol/L (21-32); CHLORIDE 101 mmol/L (98-107); COR CA(FOR HYPOALB) 9.7 mg/dL (8.5-10.1); COR NA(FOR HYPERGLY) 141 mmol/L (136-145); CREATININE 1.12 mg/dL (0.70-1.30); SODIUM 136 mmol/L (136-145); TOTAL PROTEIN 6.8 g/dL (6.4-8.2); eGFR NON BLACK RACES > 60 (>60)
[2021-07-28] MEDS: ZOSYN VIAL 4.5 GRAMS 4.5 G in NS 100 ML IV + SPIKE MINIBAG* 100 ML IV SCH ×3 (05:27→21:20)
[2021-07-28 05:39] LABS: BASOPHILS % (AUTO) 0.2 % (0.2-1.0); HEMOGLOBIN 14.3 g/dL (13.5-18.0); LYMPHOCYTES # (AUTO) 1.5 X10^3/uL (1.3-2.9); LYMPHOCYTES % (AUTO) 7.2 % (21.0-51.0); MEAN CORPUSCULAR HEMOGLOBIN 29.9 pg (27.0-34.0); MEAN CORPUSCULAR VOLUME 85.3 fL (80.0-100.0); MEAN PLATELET VOLUME 8.5 fL (7.4-11.0); MONOCYTES # (AUTO) 0.5 x10^3/uL (0.3-0.8); MONOCYTES % (AUTO) 2.6 % (0.0-13.0); NEUTROPHILS # (AUTO) 18.4 x10^3/uL (2.2-4.8); PLATELET COUNT 557 X10^3/uL (150.0-450.0); RED CELL DISTRIBUTION WIDTH 13.1 % (11.6-16.5); WHITE BLOOD COUNT 20.4 X10^3/uL (3.6-10.0)
[2021-07-28] MEDS: HumuLIN R SC PRN ×3 (06:33→22:19)
--- NOTE | 2021-07-28 08:13 | RAD ---
HISTORYCOVID PNEUMONIASTUDYCHEST, 1 [id number]/2021FINDINGSPatchy bilateral areas of opacity are consistent with bronchopneumonia. There may be a slight improvement although some of this may be due to improved technique.No pleural effusion or pneumothorax.Heart size is normal.Bones are unremarkable.IMPRESSION1. Improved bronchopneumoniaElectronically signed by: Seferino Barry (Jul 28, 2021 08:12:05)
[2021-07-28] MEDS: VITAMIN A PO SCH (09:07)
[2021-07-28] MEDS: PEPCID TAB 40 MG PO SCH ×2 (09:07→21:29)
[2021-07-28] MEDS: VIBRAMYCIN PO SCH ×2 (09:08→21:29)
[2021-07-28] MEDS: VITAMIN D3 125 mcg (5,000 UNITS) PO SCH (09:08)
[2021-07-28] MEDS: ZINC SULFATE PO SCH ×2 (09:08→21:28)
[2021-07-28] MEDS: LOVENOX INJ 40 MG SYR SC SCH ×2 (09:08→21:30)
[2021-07-28] MEDS: BROVANA IN SCH ×2 (09:25→20:20)
[2021-07-28] MEDS: PULMICORT NEB TX 0.5 MG NEB SCH ×2 (09:25→20:20)
[2021-07-28 09:29] LABS: ABG ALLEN TEST POS; ABG BASE EXCESS 2.8 mmol/L (-2.0-2.0); ABG HCO3 26.1 mmol/L (22-26)
[2021-07-28] MEDS: REMDESIVIR 100 MG in NS 100 ML IV + SPIKE MINIBAG* 120 ML IV SCH (09:41)
--- NOTE | 2021-07-28 15:28 | PCM.PROG ---
Progress Note Progress Note for Day of Date of Exam: 07/28/21 Subjective Subjective: Patient seen at bedside, no acute events overnight. He states he feels better. He was switched to HHFNC yesterday at FiO2 90%. He just went to the bathroom without oxygen on and sats dropped to 78%. It's taking a while for him to recover back. He does not appear to be in any distress, sats in low 80s. Labs: WBC: 20.4 Hgb 14.3 Glucose 309 BUN/Cr: 19/1.12 Glucose 292 CRP: 72 AST/ALT: 39/122 AB.44/36/55/24.5 CTA: no PE, bilateral opacities Blood Cx : neg Plan: Will repeat CXR and ABG. Wean O2 as tolerated to keep sats > 92%. Discussed with patient to not go to the bathroom without O2 as his sats drop to 70s. Will provide bedside commode. Discussed to prone himself to help with O2. Continue nebs, pulmicort and IS. Continue IV antibiotics, Remdesivir and Solumedrol. Continue vitamin support and lovenox. Continue insulin for hyperglycemia. Monitor AM labs and imaging. Time spent for clinical assessment, reviewing labs/imaging, physical exam, decision making greater than 45 mins. Past Medical Family Social History Past Med/Fam/Surg Hx: No changes since H&P Allergies: Allergies No Known Drug Allergies Allergy (Verified 07/25/21 00:18) Review of Systems ROS: No change since H&P Vital Signs and I&O's Vital Signs: Temperature 98.3 F Pulse Rate [Left Brachial] 74 Pulse Rate 88 Respiratory Rate 20 Blood Pressure [Left Arm] 126/84 Blood Pressure 117/59 O2 Sat by Pulse Oximetry 91 Intake and Output: Intake & Output 07/25/21 07/26/21 07/27/21 07/28/21 23:59 23:59 23:59 23:59 Intake Total 4504 / 4504 6439 / 6439 5902 / 5902 1300 / 1300 Balance 4504 / 4504 6439 / 6439 5902 / 5902 1300 / 1300 Physical Exam Oriented: Normal Eyes: Normal Ear: Normal Nose: Normal Throat: Normal Respiratory: Generalized, Diminished and Rhonchi Cardiovascular: Normal Auscultation: Bowel Sounds: Normal Tenderness: Normal Skin: Normal Musculoskeletal: Normal Psychiatric: Normal Mood Description: Calm Speech Pattern: Clear and Appropriate Laboratory and Diagnostics Result Diagrams: 07/28/21 04:35 07/28/21 04:35 Labs: 07/24/21 23:49 Blood Blood Culture - Preliminary 07/24/21 23:40 Blood Blood Culture - Preliminary Laboratory WBC 20.4 X10^3/uL (3.6-10.0) H 07/28/21 04:35 RBC 4.80 X10^6/uL (4.7-6.0) 07/28/21 04:35 Hgb 14.3 g/dL (13.5-18.0) 07/28/21 04:35 Hct 41.0 % (42.0-54.0) L 07/28/21 04:35 MCV 85.3 fL (80.0-100.0) 07/28/21 04:35 MCH 29.9 pg (27.0-34.0) 07/28/21 04:35 MCHC 35.0 g/dL (33.0-35.0) 07/28/21 04:35 RDW 13.1 % (11.6-16.5) 07/28/21 04:35 Plt Count 557 X10^3/uL (150.0-450.0) H 07/28/21 04:35 Plt Count Comment Cancelled 07/27/21 04:35 MPV 8.5 fL (7.4-11.0) 07/28/21 04:35 Neut % (Auto) 90.0 % (42.0-75.0) H 07/28/21 04:35 Lymph % (Auto) 7.2 % (21.0-51.0) L 07/28/21 04:35 [place] % (Auto) 2.6 % (0.0-13.0) 07/28/21 04:35 Eos % (Auto) 0.0 % (0.9-2.9) L 07/28/21 04:35 Baso % (Auto) 0.2 % (0.2-1.0) 07/28/21 04:35 Neut # (Auto) 18.4 x10^3/uL (2.2-4.8) H 07/28/21 04:35 Lymph # (Auto) 1.5 X10^3/uL (1.3-2.9) 07/28/21 04:35 [place] # (Auto) 0.5 x10^3/uL (0.3-0.8) 07/28/21 04:35 Eos # (Auto) 0.0 x10^3/uL (0.0-0.2) 07/28/21 04:35 Baso # (Auto) 0.0 X10^3/uL (0.0-0.1) 07/28/21 04:35 Absolute Nucleated RBC 0.0 /100WBC 07/28/21 04:35 Total Counted Cancelled 07/27/21 04:35 Neutrophils % (Manual) Cancelled 07/27/21 04:35 Band Neutrophils % Cancelled 07/27/21 04:35 Lymphocytes % (Manual) Cancelled 07/27/21 04:35 Monocytes % (Manual) Cancelled 07/27/21 04:35 Eosinophils % (Manual) Cancelled 07/27/21 04:35 Basophils % (Manual) Cancelled 07/27/21 04:35 Metamyelocytes % Cancelled 07/27/21 04:35 Myelocytes % Cancelled 07/27/21 04:35 Promyelocytes % Cancelled 07/27/21 04:35 Nucleated RBCs Cancelled 07/27/21 04:35 Atypical Lymphocytes Cancelled 07/27/21 04:35 Blast Cells Cancelled 07/27/21 04:35 Smudge Cells Cancelled 07/27/21 04:35 Toxic Granulation Cancelled 07/27/21 04:35 Dohle Bodies Cancelled 07/27/21 04:35 Pat Rods Cancelled 07/27/21 04:35 Plt Clumps, EDTA Cancelled 07/27/21 04:35 Giant Platelets Cancelled 07/27/21 04:35 Plt Morphology Comment Cancelled 07/27/21 04:35 RBC Morphology Cancelled 07/27/21 04:35 Dimorphic RBCs Cancelled 07/27/21 04:35 Polychromasia Cancelled 07/27/21 04:35 Hypochromasia Cancelled 07/27/21 04:35 Poikilocytosis Cancelled 07/27/21 04:35 Basophilic Stippling Cancelled 07/27/21 04:35 Anisocytosis Cancelled 07/27/21 04:35 Microcytosis Cancelled 07/27/21 04:35 Macrocytosis Cancelled 07/27/21 04:35 Spherocytes Cancelled 07/27/21 04:35 Pappenheimer Bodies Cancelled 07/27/21 04:35 Sickle Cells Cancelled 07/27/21 04:35 Target Cells Cancelled 07/27/21 04:35 Tear Drop Cells Cancelled 07/27/21 04:35 Ovalocytes Cancelled 07/27/21 04:35 Stomatocytes Cancelled 07/27/21 04:35 Helmet Cells Cancelled 07/27/21 04:35 [place] Bodies Cancelled 07/27/21 04:35 [place] Rings Cancelled 07/27/21 04:35 [place] Cells Cancelled 07/27/21 04:35 Crenated Cell Cancelled 07/27/21 04:35 Acanthocytes (Spur) Cancelled 07/27/21 04:35 Rouleaux Cancelled 07/27/21 04:35 Schistocytes Cancelled 07/27/21 04:35 D-Dimer 1.19 ug/ml (0.0-0.57) H* 07/25/21 10:30 Sample Site Lra 07/28/21 09:25 ABG pH 7.480 (7.35-7.45) H 07/28/21 09:25 ABG pCO2 35.0 mmHg (35.0-45.0) 07/28/21 09:25 ABG pO2 53.0 mmHg (80.0-100.0) L 07/28/21 09:25 ABG HCO3 26.1 mmol/L (22-26) H 07/28/21 09:25 ABG O2 Saturation 90.0 % (90-100) 07/28/21 09:25 ABG Base Excess 2.8 mmol/L (-2.0-2.0) H 07/28/21 09:25 Cyril Test Pos 07/28/21 09:25 A-a Gradient 545.0 mmHg 07/28/21 09:25 FiO2 90.0 07/28/21 09:25 Blood Gas Comments Pt roberto well eb 07/28/21 09:25 Sodium 136 mmol/L (136-145) 07/28/21 04:35 Corrected Sodium 141 mmol/L (136-145) 07/28/21 04:35 Potassium 4.2 mmol/L (3.5-5.1) 07/28/21 04:35 Chloride 101 mmol/L (98-107) 07/28/21 04:35 Carbon Dioxide 26.2 mmol/L (21-32) 07/28/21 04:35 BUN 19 mg/dL (7-18) H 07/28/21 04:35 Creatinine 1.12 mg/dL (0.70-1.30) 07/28/21 04:35 Est GFR (MDRD) Af Amer > 60 (>60) 07/28/21 04:35 Est GFR (MDRD) Non-Af > 60 (>60) 07/28/21 04:35 Glucose 292 mg/dL (65-99) H 07/28/21 04:35 POC Glucose (mg/dL) 273 mg/dL (65-99) H 07/28/21 11:05 Lactic Acid 1.7 mmol/L (0.4-2.0) 07/24/21 23:40 Calcium 8.4 mg/dL (8.5-10.1) L 07/28/21 04:35 Corrected Calcium 9.7 mg/dL (8.5-10.1) 07/28/21 04:35 Magnesium 2.4 mg/dL (1.7-2.9) 07/28/21 01:10 Total Bilirubin 0.60 mg/dL (0.2-1.0) 07/28/21 04:35 AST 39 Units/L (15-37) H 07/28/21 04:35 ALT 122 Units/L (12-78) H 07/28/21 04:35 Alkaline Phosphatase 123 Units/L (46-116) H 07/28/21 04:35 Troponin I < 0.02 ng/mL (0-1.5) 07/25/21 03:42 C-Reactive Protein 72.20 mg/L (0-3.0) H 07/26/21 23:40 Total Protein 6.8 g/dL (6.4-8.2) 07/28/21 04:35 Albumin 2.4 g/dL (3.4-5.0) L 07/28/21 04:35 Globulin 4.4 g/dL (2.5-4.5) 07/28/21 04:35 Albumin/Globulin Ratio 0.5 Ratio (1.1-2.1) L 07/28/21 04:35 SARS-CoV-2 (PCR) Positive (NEGATIVE) A 07/25/21 01:46 Influenza Type A (PCR) Negative (NEGATIVE) 07/25/21 01:46 Influenza Type B (PCR) Negative (NEGATIVE) 07/25/21 01:46 RSV (PCR) Negative (NEGATIVE) 07/25/21 01:46 Plan (1) Pneumonia due to COVID-19 virus: Status: Acute (2) Acute respiratory failure with hypoxia: Status: Acute (3) Hyperglycemia: Status: Acute
[2021-07-28] MEDS: ROBITUSSIN DM PO PRN ×2 (16:42→21:25)
[2021-07-29] MEDS: SOLU-Medrol 125 MG VIAL IVP SCH ×4 (02:38→20:13)
[2021-07-29] MEDS: ASCORBIC ACID INJ MULTI-DOSE VIAL 1,500 MG in NS 100 ML IV 100 ML IV SCH ×4 (02:39→20:16)
[2021-07-29] MEDS: NS 1000 ML 1,000 ML IV SCH (02:39)
[2021-07-29] MEDS: ZOSYN VIAL 4.5 GRAMS 4.5 G in NS 100 ML IV + SPIKE MINIBAG* 100 ML IV SCH ×3 (05:51→22:00)
[2021-07-29] MEDS: HumuLIN R SC PRN ×4 (05:59→20:21)
[2021-07-29 06:13] LABS: BASOPHILS # (AUTO) 0.1 X10^3/uL (0.0-0.1); BASOPHILS % (AUTO) 0.4 % (0.2-1.0); HEMOGLOBIN 13.5 g/dL (13.5-18.0); LYMPHOCYTES # (AUTO) 1.3 X10^3/uL (1.3-2.9); LYMPHOCYTES % (AUTO) 6.7 % (21.0-51.0); MEAN CORPUSCULAR HEMOGLOBIN 29.5 pg (27.0-34.0); MEAN CORPUSCULAR HGB CONC 34.5 g/dL (33.0-35.0); MEAN CORPUSCULAR VOLUME 85.4 fL (80.0-100.0); MONOCYTES # (AUTO) 0.4 x10^3/uL (0.3-0.8); MONOCYTES % (AUTO) 1.9 % (0.0-13.0); NEUTROPHILS # (AUTO) 17.4 x10^3/uL (2.2-4.8); PLATELET COUNT 521 X10^3/uL (150.0-450.0); RED BLOOD COUNT 4.56 X10^6/uL (4.7-6.0); RED CELL DISTRIBUTION WIDTH 12.8 % (11.6-16.5); WHITE BLOOD COUNT 19.1 X10^3/uL (3.6-10.0)
[2021-07-29 06:30] LABS: ALANINE AMINOTRANSFERASE 98 Units/L (12-78); ALBUMIN 2.3 g/dL (3.4-5.0); ALKALINE PHOSPHATASE 122 Units/L (46-116); ASPARTATE AMINO TRANSFERASE 36 Units/L (15-37); BLOOD UREA NITROGEN 16 mg/dL (7-18); CARBON DIOXIDE 25.8 mmol/L (21-32); CHLORIDE 102 mmol/L (98-107); COR CA(FOR HYPOALB) 9.4 mg/dL (8.5-10.1); COR NA(FOR HYPERGLY) 139 mmol/L (136-145); CREATININE 0.78 mg/dL (0.70-1.30); SODIUM 135 mmol/L (136-145); TOTAL PROTEIN 6.2 g/dL (6.4-8.2); eGFR NON BLACK RACES > 60 (>60)
[2021-07-29 06:54] LABS: BAND NEUTROPHILS % 2 % (0-10)
[2021-07-29 06:55] LABS: PLATELET MORPHOLOGY COMMENT NORMAL (NORMAL)
--- NOTE | 2021-07-29 07:55 | RAD ---
HISTORYCOVID PNEUMONIASTUDYCHEST, 1 [id number]/2021FINDINGSPatchy bilateral areas of opacity are consistent with pneumonia. No change from yesterday.No pneumothorax or significant effusion.The heart size is magnified.Bones are unremarkable.IMPRESSION1. Unchanged bronchopneumoniaElectronically signed by: Seferino Barry (Jul 29, 2021 07:53:02)
[2021-07-29] MEDS: BROVANA IN SCH ×2 (08:00→21:00)
[2021-07-29] MEDS: PULMICORT NEB TX 0.5 MG NEB SCH ×2 (08:00→21:00)
[2021-07-29] MEDS ORDERED: ACTEMRA 400 MG in NS 100 ML IV 80 ML IV NR (08:45)
[2021-07-29] MEDS: LOVENOX INJ 40 MG SYR SC SCH ×2 (09:18→20:20)
[2021-07-29] MEDS: PEPCID TAB 40 MG PO SCH ×2 (09:19→20:10)
[2021-07-29] MEDS: VIBRAMYCIN PO SCH ×2 (09:21→20:11)
[2021-07-29] MEDS: REMDESIVIR 100 MG in NS 100 ML IV + SPIKE MINIBAG* 120 ML IV SCH (09:21)
[2021-07-29] MEDS: VITAMIN D3 125 mcg (5,000 UNITS) PO SCH (09:21)
[2021-07-29] MEDS: ROBITUSSIN DM PO PRN ×3 (09:22→20:09)
[2021-07-29] MEDS: ZINC SULFATE PO SCH ×2 (09:29→20:10)
[2021-07-29] MEDS: VITAMIN A PO SCH (09:29)
[2021-07-29] MEDS ORDERED: TUSSIONEX PENNKINETIC SUSP ONE (11:02)
[2021-07-29] MEDS: TUSSIONEX PENNKINETIC SUSP PO PRN (12:03)
--- NOTE | 2021-07-29 13:02 | PCM.PROG ---
Progress Note Progress Note for Day of Date of Exam: 07/29/21 Subjective Subjective: Patient seen at bedside, no acute events overnight. He states he feels better. He remains on HHFNC at FIO2 90%. He continues to have dry cough. Denies fever or chills. He reports good appetite. He has been using the IS, changing positions in the bed and doing light exercises. He does not appear to be in any respiratory distress. Labs: WBC: 19.1 Hgb 13.5 Glucose 219 BUN/Cr: 16/0.78 CRP: 26 AST/ALT: 36/98 AB.48/35/53/26 CTA: no PE, bilateral opacities CXR (07/29/21): unchanged bronchopneumonia Blood Cx : neg Plan: Wean HHFNC O2 as tolerated to keep sats > 92%. Will give one dose of Actemra. Discussed proning and laying on side to help with oxygenation. Continue nebs, pulmicort and IS. Will add tessalon pearls and mucomyst. Continue IV antibiotics, Remdesivir and Solumedrol. Continue vitamin support and lovenox. Continue insulin for hyperglycemia. DC IVF. Monitor AM labs and imaging. Time spent for clinical assessment, reviewing labs/imaging, physical exam, decision making greater than 45 mins. Past Medical Family Social History Past Med/Fam/Surg Hx: No changes since H&P Allergies: Allergies No Known Drug Allergies Allergy (Verified 07/25/21 00:18) Review of Systems ROS: No change since H&P Vital Signs and I&O's Vital Signs: Temperature 98.4 F Pulse Rate [Left Brachial] 67 Pulse Rate 91 Respiratory Rate 20 Blood Pressure [Left Arm] 129/74 Blood Pressure 117/59 O2 Sat by Pulse Oximetry 90 Intake and Output: Intake & Output 07/26/21 07/27/21 07/28/21 07/29/21 23:59 23:59 23:59 23:59 Intake Total 6439 / 6439 5902 / 5902 4180 / 4180 601 / 601 Output Total 600 / 600 Balance 6439 / 6439 5902 / 5902 3580 / 3580 601 / 601 Physical Exam Oriented: Normal Eyes: Normal Ear: Normal Nose: Normal Throat: Normal Respiratory: Generalized, Diminished and Rhonchi Cardiovascular: Normal Auscultation: Bowel Sounds: Normal Tenderness: Normal Skin: Normal Musculoskeletal: Normal Psychiatric: Normal Mood Description: Calm Speech Pattern: Clear and Appropriate Laboratory and Diagnostics Result Diagrams: 07/29/21 05:25 07/29/21 05:25 Labs: 07/24/21 23:49 Blood Blood Culture - Preliminary 07/24/21 23:40 Blood Blood Culture - Preliminary Laboratory WBC 19.1 X10^3/uL (3.6-10.0) H 07/29/21 05:25 RBC 4.56 X10^6/uL (4.7-6.0) L 07/29/21 05:25 Hgb 13.5 g/dL (13.5-18.0) 07/29/21 05:25 Hct 39.0 % (42.0-54.0) L 07/29/21 05:25 MCV 85.4 fL (80.0-100.0) 07/29/21 05:25 MCH 29.5 pg (27.0-34.0) 07/29/21 05:25 MCHC 34.5 g/dL (33.0-35.0) 07/29/21 05:25 RDW 12.8 % (11.6-16.5) 07/29/21 05:25 Plt Count 521 X10^3/uL (150.0-450.0) H 07/29/21 05:25 Plt Count Comment Increased (ADEQUATE) 07/29/21 05:25 MPV 8.0 fL (7.4-11.0) 07/29/21 05:25 Neut % (Auto) 91.0 % (42.0-75.0) H 07/29/21 05:25 Lymph % (Auto) 6.7 % (21.0-51.0) L 07/29/21 05:25 [place] % (Auto) 1.9 % (0.0-13.0) 07/29/21 05:25 Eos % (Auto) 0.0 % (0.9-2.9) L 07/29/21 05:25 Baso % (Auto) 0.4 % (0.2-1.0) 07/29/21 05:25 Neut # (Auto) 17.4 x10^3/uL (2.2-4.8) H 07/29/21 05:25 Lymph # (Auto) 1.3 X10^3/uL (1.3-2.9) 07/29/21 05:25 [place] # (Auto) 0.4 x10^3/uL (0.3-0.8) 07/29/21 05:25 Eos # (Auto) 0.0 x10^3/uL (0.0-0.2) 07/29/21 05:25 Baso # (Auto) 0.1 X10^3/uL (0.0-0.1) 07/29/21 05:25 Absolute Nucleated RBC 0.2 /100WBC 07/29/21 05:25 Total Counted 100 07/29/21 05:25 Neutrophils % (Manual) 88 % (39-76) H 07/29/21 05:25 Band Neutrophils % 2 % (0-10) 07/29/21 05:25 Lymphocytes % (Manual) 10 % (13-43) L 07/29/21 05:25 Monocytes % (Manual) Cancelled 07/27/21 04:35 Eosinophils % (Manual) Cancelled 07/27/21 04:35 Basophils % (Manual) Cancelled 07/27/21 04:35 Metamyelocytes % Cancelled 07/27/21 04:35 Myelocytes % Cancelled 07/27/21 04:35 Promyelocytes % Cancelled 07/27/21 04:35 Nucleated RBCs Cancelled 07/27/21 04:35 Atypical Lymphocytes Cancelled 07/27/21 04:35 Blast Cells Cancelled 07/27/21 04:35 Smudge Cells Cancelled 07/27/21 04:35 Toxic Granulation Cancelled 07/27/21 04:35 Dohle Bodies Cancelled 07/27/21 04:35 Pat Rods Cancelled 07/27/21 04:35 Plt Clumps, EDTA Cancelled 07/27/21 04:35 Giant Platelets Cancelled 07/27/21 04:35 Plt Morphology Comment Normal (NORMAL) 07/29/21 05:25 RBC Morphology Normal (NORMAL) 07/29/21 05:25 Dimorphic RBCs Cancelled 07/27/21 04:35 Polychromasia Cancelled 07/27/21 04:35 Hypochromasia Cancelled 07/27/21 04:35 Poikilocytosis Cancelled 07/27/21 04:35 Basophilic Stippling Cancelled 07/27/21 04:35 Anisocytosis Cancelled 07/27/21 04:35 Microcytosis Cancelled 07/27/21 04:35 Macrocytosis Cancelled 07/27/21 04:35 Spherocytes Cancelled 07/27/21 04:35 Pappenheimer Bodies Cancelled 07/27/21 04:35 Sickle Cells Cancelled 07/27/21 04:35 Target Cells Cancelled 07/27/21 04:35 Tear Drop Cells Cancelled 07/27/21 04:35 Ovalocytes Cancelled 07/27/21 04:35 Stomatocytes Cancelled 07/27/21 04:35 Helmet Cells Cancelled 07/27/21 04:35 [place] Bodies Cancelled 07/27/21 04:35 [place] Rings Cancelled 07/27/21 04:35 [place] Cells Cancelled 07/27/21 04:35 Crenated Cell Cancelled 07/27/21 04:35 Acanthocytes (Spur) Cancelled 07/27/21 04:35 Rouleaux Cancelled 07/27/21 04:35 Schistocytes Cancelled 07/27/21 04:35 D-Dimer 1.19 ug/ml (0.0-0.57) H* 07/25/21 10:30 Sample Site Lra 07/28/21 09:25 ABG pH 7.480 (7.35-7.45) H 07/28/21 09:25 ABG pCO2 35.0 mmHg (35.0-45.0) 07/28/21 09:25 ABG pO2 53.0 mmHg (80.0-100.0) L 07/28/21 09:25 ABG HCO3 26.1 mmol/L (22-26) H 07/28/21 09:25 ABG O2 Saturation 90.0 % (90-100) 07/28/21 09:25 ABG Base Excess 2.8 mmol/L (-2.0-2.0) H 07/28/21 09:25 Cyril Test Pos 07/28/21 09:25 A-a Gradient 545.0 mmHg 07/28/21 09:25 FiO2 90.0 07/28/21 09:25 Blood Gas Comments Pt roberto well eb 07/28/21 09:25 Sodium 135 mmol/L (136-145) L 07/29/21 05:25 Corrected Sodium 139 mmol/L (136-145) 07/29/21 05:25 Potassium 4.2 mmol/L (3.5-5.1) 07/29/21 05:25 Chloride 102 mmol/L (98-107) 07/29/21 05:25 Carbon Dioxide 25.8 mmol/L (21-32) 07/29/21 05:25 BUN 16 mg/dL (7-18) 07/29/21 05:25 Creatinine 0.78 mg/dL (0.70-1.30) 07/29/21 05:25 Est GFR (MDRD) Af Amer > 60 (>60) 07/29/21 05:25 Est GFR (MDRD) Non-Af > 60 (>60) 07/29/21 05:25 Glucose 247 mg/dL (65-99) H 07/29/21 05:25 POC Glucose (mg/dL) 237 mg/dL (65-99) H 07/29/21 12:19 Lactic Acid 1.7 mmol/L (0.4-2.0) 07/24/21 23:40 Calcium 8.0 mg/dL (8.5-10.1) L 07/29/21 05:25 Corrected Calcium 9.4 mg/dL (8.5-10.1) 07/29/21 05:25 Magnesium 2.4 mg/dL (1.7-2.9) 07/28/21 01:10 Total Bilirubin 0.50 mg/dL (0.2-1.0) 07/29/21 05:25 AST 36 Units/L (15-37) 07/29/21 05:25 ALT 98 Units/L (12-78) H 07/29/21 05:25 Alkaline Phosphatase 122 Units/L (46-116) H 07/29/21 05:25 Troponin I < 0.02 ng/mL (0-1.5) 07/25/21 03:42 C-Reactive Protein 26.30 mg/L (0-3.0) H 07/29/21 05:25 Total Protein 6.2 g/dL (6.4-8.2) L 07/29/21 05:25 Albumin 2.3 g/dL (3.4-5.0) L 07/29/21 05:25 Globulin 3.9 g/dL (2.5-4.5) 07/29/21 05:25 Albumin/Globulin Ratio 0.6 Ratio (1.1-2.1) L 07/29/21 05:25 SARS-CoV-2 (PCR) Positive (NEGATIVE) A 07/25/21 01:46 Influenza Type A (PCR) Negative (NEGATIVE) 07/25/21 01:46 Influenza Type B (PCR) Negative (NEGATIVE) 07/25/21 01:46 RSV (PCR) Negative (NEGATIVE) 07/25/21 01:46 Plan (1) Pneumonia due to COVID-19 virus: Status: Acute (2) Acute respiratory failure with hypoxia: Status: Acute (3) Hyperglycemia: Status: Acute
[2021-07-29] MEDS: TESSALON PERLES PO PRN ×2 (15:24→20:11)
[2021-07-29] MEDS: MUCOMYST 20% 200 MG/ML NEB SCH ×2 (15:28→22:10)
[2021-07-29] MEDS: PROVENTIL NEB TX 0.083% 2.5MG/ 3ML NEB SCH ×2 (17:51→21:00)
[2021-07-29] MEDS: MUCOMYST (RESPIRATORY USE ONLY) NEB SCH ×2 (17:51→21:00)
[2021-07-30] MEDS: SOLU-Medrol 125 MG VIAL IVP SCH ×4 (02:18→20:59)
[2021-07-30] MEDS: ASCORBIC ACID INJ MULTI-DOSE VIAL 1,500 MG in NS 100 ML IV 100 ML IV SCH ×4 (02:18→20:58)
[2021-07-30] MEDS: ZOSYN VIAL 4.5 GRAMS 4.5 G in NS 100 ML IV + SPIKE MINIBAG* 100 ML IV SCH ×3 (05:36→21:01)
[2021-07-30] MEDS: TUSSIONEX PENNKINETIC SUSP PO PRN ×2 (05:49→18:00)
[2021-07-30] MEDS: HumuLIN R SC PRN ×4 (05:50→21:00)
[2021-07-30 06:32] LABS: BASOPHILS # (AUTO) 0.1 X10^3/uL (0.0-0.1); BASOPHILS % (AUTO) 0.4 % (0.2-1.0); HEMOGLOBIN 13.6 g/dL (13.5-18.0); LYMPHOCYTES # (AUTO) 0.9 X10^3/uL (1.3-2.9); LYMPHOCYTES % (AUTO) 5.2 % (21.0-51.0); MEAN CORPUSCULAR HEMOGLOBIN 29.2 pg (27.0-34.0); MEAN CORPUSCULAR HGB CONC 34.8 g/dL (33.0-35.0); MEAN CORPUSCULAR VOLUME 83.9 fL (80.0-100.0); MEAN PLATELET VOLUME 8.3 fL (7.4-11.0); MONOCYTES # (AUTO) 0.4 x10^3/uL (0.3-0.8); MONOCYTES % (AUTO) 2.5 % (0.0-13.0); NEUTROPHILS # (AUTO) 16.5 x10^3/uL (2.2-4.8); NEUTROPHILS % (AUTO) 91.9 % (42.0-75.0); PLATELET COUNT 521 X10^3/uL (150.0-450.0); RED BLOOD COUNT 4.65 X10^6/uL (4.7-6.0); RED CELL DISTRIBUTION WIDTH 12.7 % (11.6-16.5)
[2021-07-30 06:33] LABS: ALANINE AMINOTRANSFERASE 95 Units/L (12-78); ALBUMIN 2.3 g/dL (3.4-5.0); ALKALINE PHOSPHATASE 109 Units/L (46-116); ASPARTATE AMINO TRANSFERASE 25 Units/L (15-37); BLOOD UREA NITROGEN 16 mg/dL (7-18); CALCIUM 7.9 mg/dL (8.5-10.1); CARBON DIOXIDE 25.8 mmol/L (21-32); CHLORIDE 102 mmol/L (98-107); COR CA(FOR HYPOALB) 9.3 mg/dL (8.5-10.1); COR NA(FOR HYPERGLY) 139 mmol/L (136-145); CREATININE 0.84 mg/dL (0.70-1.30); SODIUM 135 mmol/L (136-145); eGFR NON BLACK RACES > 60 (>60)
[2021-07-30] MEDS: PULMICORT NEB TX 0.5 MG NEB SCH ×2 (08:20→21:30)
[2021-07-30] MEDS: BROVANA IN SCH ×2 (08:20→21:30)
[2021-07-30] MEDS: VIBRAMYCIN PO SCH ×2 (08:33→20:58)
[2021-07-30] MEDS: VITAMIN D3 125 mcg (5,000 UNITS) PO SCH (08:33)
[2021-07-30] MEDS: ZINC SULFATE PO SCH ×2 (08:33→20:58)
[2021-07-30] MEDS: PEPCID TAB 40 MG PO SCH ×2 (08:33→20:58)
[2021-07-30] MEDS: LOVENOX INJ 40 MG SYR SC SCH ×2 (08:34→20:57)
--- NOTE | 2021-07-30 08:35 | RAD ---
HISTORYCOVID-19 pneumoniaSTUDYPortable AP [id number]/10/2021FINDINGSStable normal heart size and contour with no definite or significant change in degree or distribution bilateral airspace involvement. There are no new areas of consolidation identified. Pleural spaces remain well defined.IMPRESSIONNo significant change in appearance of bilateral pneumonia.Electronically signed by: PRIYANKA AYALA (Jul 30, 2021 08:33:23)
[2021-07-30 10:11] LABS: ABG BASE EXCESS 2.6 mmol/L (-2.0-2.0); ABG HCO3 26.2 mmol/L (22-26)
[2021-07-30 10:12] LABS: ABG ALLEN TEST POSITIVE
[2021-07-30 10:14] LABS: BAND NEUTROPHILS % 4 % (0-10)
[2021-07-30 10:15] LABS: PLATELET MORPHOLOGY COMMENT NORMAL (NORMAL)
[2021-07-30] MEDS: VITAMIN A PO SCH (11:17)
[2021-07-30] MEDS ORDERED: NS 100 ML IV 100 ML ONE (11:18)
[2021-07-30] MEDS: ROBITUSSIN DM PO PRN ×2 (11:48→20:58)
[2021-07-30] MEDS: MUCOMYST 20% 200 MG/ML NEB SCH ×2 (13:25→21:00)
[2021-07-30] MEDS: PROVENTIL NEB TX 0.083% 2.5MG/ 3ML NEB SCH ×2 (13:25→21:00)
[2021-07-30] MEDS: MUCOMYST (RESPIRATORY USE ONLY) NEB SCH ×2 (13:43→21:00)
[2021-07-31] MEDS: SOLU-Medrol 125 MG VIAL IVP SCH ×4 (02:31→21:02)
[2021-07-31] MEDS: ASCORBIC ACID INJ MULTI-DOSE VIAL 1,500 MG in NS 100 ML IV 100 ML IV SCH ×4 (02:31→21:00)
[2021-07-31] MEDS: ROBITUSSIN DM PO PRN (02:31)
[2021-07-31] MEDS: ZOSYN VIAL 4.5 GRAMS 4.5 G in NS 100 ML IV + SPIKE MINIBAG* 100 ML IV SCH ×3 (05:30→21:03)
[2021-07-31] MEDS ORDERED: NS 100 ML IV 100 ML ONE (05:33)
[2021-07-31] MEDS: HumuLIN R SC PRN ×4 (05:41→21:01)
[2021-07-31 05:42] LABS: BASOPHILS # (AUTO) 0.1 X10^3/uL (0.0-0.1); BASOPHILS % (AUTO) 0.3 % (0.2-1.0); HEMATOCRIT 40.6 % (42.0-54.0); HEMOGLOBIN 14.1 g/dL (13.5-18.0); LYMPHOCYTES # (AUTO) 0.9 X10^3/uL (1.3-2.9); LYMPHOCYTES % (AUTO) 4.6 % (21.0-51.0); MEAN CORPUSCULAR HEMOGLOBIN 28.9 pg (27.0-34.0); MEAN CORPUSCULAR HGB CONC 34.7 g/dL (33.0-35.0); MEAN CORPUSCULAR VOLUME 83.5 fL (80.0-100.0); MEAN PLATELET VOLUME 8.9 fL (7.4-11.0); MONOCYTES # (AUTO) 0.5 x10^3/uL (0.3-0.8); MONOCYTES % (AUTO) 2.3 % (0.0-13.0); NEUTROPHILS # (AUTO) 18.3 x10^3/uL (2.2-4.8); NEUTROPHILS % (AUTO) 92.8 % (42.0-75.0); PLATELET COUNT 600 X10^3/uL (150.0-450.0); RED BLOOD COUNT 4.86 X10^6/uL (4.7-6.0); RED CELL DISTRIBUTION WIDTH 12.8 % (11.6-16.5); WHITE BLOOD COUNT 19.7 X10^3/uL (3.6-10.0)
[2021-07-31 05:50] LABS: ABG HCO3 25.5 mmol/L (22-26)
[2021-07-31 05:51] LABS: ABG ALLEN TEST POS
[2021-07-31 05:55] LABS: ALANINE AMINOTRANSFERASE 111 Units/L (12-78); ALBUMIN 2.5 g/dL (3.4-5.0); ALKALINE PHOSPHATASE 99 Units/L (46-116); BLOOD UREA NITROGEN 24 mg/dL (7-18); CALCIUM 8.1 mg/dL (8.5-10.1); CARBON DIOXIDE 26.3 mmol/L (21-32); CHLORIDE 99 mmol/L (98-107); COR CA(FOR HYPOALB) 9.3 mg/dL (8.5-10.1); COR NA(FOR HYPERGLY) 140 mmol/L (136-145); CREATININE 0.88 mg/dL (0.70-1.30); SODIUM 134 mmol/L (136-145); TOTAL PROTEIN 6.2 g/dL (6.4-8.2); eGFR NON BLACK RACES > 60 (>60)
[2021-07-31 06:06] LABS: ASPARTATE AMINO TRANSFERASE 34 Units/L (15-37)
[2021-07-31 06:39] LABS: BAND NEUTROPHILS % 2 % (0-10); PLATELET MORPHOLOGY COMMENT NORMAL (NORMAL)
--- NOTE | 2021-07-31 08:05 | RAD ---
HISTORYCOVID-19STUDYPortable AP [id number]/2021FINDINGSContinued normal heart size and contour. Extensive bilateral airspac e disease is again noted, stable in the right lung and minimally improved on the left. No new abnorma lity is noted.IMPRESSIONPersistent bilateral pneumonia with slight interval improvement suggested in the left lung.Electronically signed by: PRIYANKA AYALA (Jul 31, 2021 08:03:41)
[2021-07-31] MEDS: PEPCID TAB 40 MG PO SCH ×2 (08:21→21:02)
[2021-07-31] MEDS: LOVENOX INJ 40 MG SYR SC SCH ×2 (08:21→21:01)
[2021-07-31] MEDS: VITAMIN D3 125 mcg (5,000 UNITS) PO SCH (08:22)
[2021-07-31] MEDS: VITAMIN A PO SCH (08:22)
[2021-07-31] MEDS: ZINC SULFATE PO SCH ×2 (08:22→21:02)
[2021-07-31] MEDS: VIBRAMYCIN PO SCH ×2 (08:22→21:02)
[2021-07-31] MEDS: TUSSIONEX PENNKINETIC SUSP PO PRN (08:52)
[2021-07-31] MEDS: MUCOMYST (RESPIRATORY USE ONLY) NEB SCH (09:10)
[2021-07-31] MEDS: PULMICORT NEB TX 0.5 MG NEB SCH ×2 (09:10→20:32)
[2021-07-31] MEDS: PROVENTIL NEB TX 0.083% 2.5MG/ 3ML NEB SCH (09:10)
[2021-07-31] MEDS: BROVANA IN SCH ×2 (09:15→20:32)
[2021-07-31 10:18] VITALS: BMI 31.6
[2021-07-31] MEDS ORDERED: LASIX IVP SCH (11:00)
[2021-07-31] MEDS ORDERED: K-DUR TAB 20 MEQ PO SCH (11:00)
[2021-07-31] MEDS: ROBITUSSIN DM PO SCH ×4 (11:55→23:15)
[2021-07-31] MEDS ORDERED: LEVEMIR SC ONE (18:57)
[2021-07-31 20:02] LABS: HEMOGLOBIN A1C 11.4 %
[2021-07-31] MEDS: SNACK - Diabetic Appropriate PO SCH (20:59)
[2021-08-01] MEDS: HumuLIN R SC PRN ×5 (02:01→20:48)
[2021-08-01] MEDS: ROBITUSSIN DM PO SCH ×6 (02:09→23:15)
[2021-08-01] MEDS: ASCORBIC ACID INJ MULTI-DOSE VIAL 1,500 MG in NS 100 ML IV 100 ML IV SCH ×4 (02:09→20:14)
[2021-08-01] MEDS: SOLU-Medrol 125 MG VIAL IVP SCH ×4 (02:09→20:15)
[2021-08-01 05:21] LABS: ABG ALLEN TEST POS; ABG BASE EXCESS 2.2 mmol/L (-2.0-2.0); ABG HCO3 26.5 mmol/L (22-26)
[2021-08-01] MEDS ORDERED: NS 100 ML IV 100 ML ONE (05:27)
[2021-08-01] MEDS: ZOSYN VIAL 4.5 GRAMS 4.5 G in NS 100 ML IV + SPIKE MINIBAG* 100 ML IV SCH ×3 (05:37→21:32)
[2021-08-01 05:49] LABS: BASOPHILS # (AUTO) 0.1 X10^3/uL (0.0-0.1); BASOPHILS % (AUTO) 0.5 % (0.2-1.0); HEMATOCRIT 40.3 % (42.0-54.0); LYMPHOCYTES # (AUTO) 1.1 X10^3/uL (1.3-2.9); MEAN CORPUSCULAR HEMOGLOBIN 28.6 pg (27.0-34.0); MEAN CORPUSCULAR HGB CONC 34.6 g/dL (33.0-35.0); MEAN CORPUSCULAR VOLUME 82.6 fL (80.0-100.0); MEAN PLATELET VOLUME 8.5 fL (7.4-11.0); MONOCYTES # (AUTO) 0.6 x10^3/uL (0.3-0.8); NEUTROPHILS # (AUTO) 16.8 x10^3/uL (2.2-4.8); NEUTROPHILS % (AUTO) 90.5 % (42.0-75.0); PLATELET COUNT 569 X10^3/uL (150.0-450.0); RED BLOOD COUNT 4.88 X10^6/uL (4.7-6.0); RED CELL DISTRIBUTION WIDTH 13.2 % (11.6-16.5); WHITE BLOOD COUNT 18.6 X10^3/uL (3.6-10.0)
[2021-08-01 06:07] LABS: ALBUMIN 2.4 g/dL (3.4-5.0); ALKALINE PHOSPHATASE 92 Units/L (46-116); BLOOD UREA NITROGEN 20 mg/dL (7-18); CALCIUM 8.1 mg/dL (8.5-10.1); CARBON DIOXIDE 24.6 mmol/L (21-32); CHLORIDE 100 mmol/L (98-107); COR CA(FOR HYPOALB) 9.4 mg/dL (8.5-10.1); COR NA(FOR HYPERGLY) 140 mmol/L (136-145); CREATININE 0.79 mg/dL (0.70-1.30); SODIUM 134 mmol/L (136-145); eGFR NON BLACK RACES > 60 (>60)
[2021-08-01 06:20] LABS: PLATELET MORPHOLOGY COMMENT NORMAL (NORMAL)
[2021-08-01 06:33] LABS: ALANINE AMINOTRANSFERASE 96 Units/L (12-78); ASPARTATE AMINO TRANSFERASE 8 Units/L (15-37)
--- NOTE | 2021-08-01 06:35 | RAD ---
HISTORYSOB, COVID+ Relevant Clinical InformationSTUDYCHEST, 1 [id number]/2021FINDINGSThe trachea is midline. The cardiac silhouette is unremarkable. Extensive bilateral airspace disease unchanged. No pneumothorax. The bony thorax is unremarkable.IMPRESSIONDiffuse bilateral pneumonic infiltrates unchanged from previous 1Electronically signed by: Dominick Velazco (Aug 01, 2021 06:34:01)
[2021-08-01] MEDS: MUCOMYST (RESPIRATORY USE ONLY) NEB SCH ×2 (08:45→21:00)
[2021-08-01] MEDS: BROVANA IN SCH ×2 (08:46→21:00)
[2021-08-01] MEDS: PULMICORT NEB TX 0.5 MG NEB SCH ×2 (08:46→21:00)
[2021-08-01] MEDS: PROVENTIL NEB TX 0.083% 2.5MG/ 3ML NEB SCH ×2 (08:46→21:00)
[2021-08-01] MEDS: PEPCID TAB 40 MG PO SCH ×2 (08:47→20:15)
[2021-08-01] MEDS: VIBRAMYCIN PO SCH ×2 (08:50→20:16)
[2021-08-01] MEDS: LOVENOX INJ 40 MG SYR SC SCH ×2 (08:50→20:14)
[2021-08-01] MEDS: VITAMIN D3 125 mcg (5,000 UNITS) PO SCH (08:51)
[2021-08-01] MEDS: VITAMIN A PO SCH (08:51)
[2021-08-01] MEDS: ZINC SULFATE PO SCH ×2 (08:51→20:16)
[2021-08-01] MEDS: TUSSIONEX PENNKINETIC SUSP PO PRN (08:52)
[2021-08-01] MEDS ORDERED: LEVEMIR SC SCH (09:00)
--- NOTE | 2021-08-01 15:22 | PCM.PROG ---
Progress Note Progress Note for Day of Date of Exam: 08/01/21 Subjective Subjective: Patient seen at bedside, no acute events overnight. He remains on HHFNC at FiO2 90%. He states he feels a lot better today. He denies fever or chills. He continues to have dry cough. He has been ambulating in the room. He reports good appetite. He does not appear to be in any respiratory distress. He has been laying on his sides and self proning. Patient's FSBG was elevated yesterday and he was started on Levemir. Labs: WBC: 18.6 Hgb 14 Glucose 334 BUN/Cr: 20/0.79 AST/ALT: 8/96 AB.44/39/62/26.5 sats 92% CTA: no PE, bilateral opacities CXR(08/01/21): no change in diffuse bilateral pulmonary infiltrates. Blood Cx : neg Plan: Wean HHFNC O2 as tolerated to keep sats > 92%. Patient has received one dose of Actemra and completed Remdesivir. Continue nebs, pulmicort and IS. Will add smart vest. Continue anti-tussives, tessalon pearls and mucomyst. Continue IV antibiotics and solumedrol. Continue self proning and laying on the side. Continue vitamin support and lovenox. Continue levemir and SSI for hyperglycemia. Monitor AM labs and imaging. Time spent for clinical assessment, reviewing labs/imaging, physical exam, decision making greater than 45 mins. Past Medical Family Social History Past Med/Fam/Surg Hx: No changes since H&P Allergies: Allergies No Known Drug Allergies Allergy (Verified 07/25/21 00:18) Review of Systems ROS: No change since H&P Vital Signs and I&O's Vital Signs: Temperature 97.8 F Pulse Rate [Left Brachial] 64 Pulse Rate 81 Respiratory Rate 20 Blood Pressure [Left Arm] 121/70 Blood Pressure 117/59 O2 Sat by Pulse Oximetry 95 Intake and Output: Intake & Output 07/29/21 07/30/21 07/31/21 08/01/21 23:59 23:59 23:59 23:59 Intake Total 2729 / 2729 3005 / 3005 6169 / 6169 2893 / 2893 Output Total 2225 / 2225 400 / 400 Balance 2729 / 2729 3005 / 3005 3944 / 3944 2493 / 2493 Physical Exam Oriented: Normal Eyes: Normal Ear: Normal Nose: Normal Throat: Normal Respiratory: Generalized and Diminished Cardiovascular: Normal Auscultation: Bowel Sounds: Normal Tenderness: Normal Skin: Normal Musculoskeletal: Normal Psychiatric: Normal Mood Description: Calm Speech Pattern: Clear and Appropriate Laboratory and Diagnostics Result Diagrams: 08/01/21 04:59 08/01/21 04:59 Labs: 07/24/21 23:49 Blood Blood Culture - Final 07/24/21 23:40 Blood Blood Culture - Final Laboratory WBC 18.6 X10^3/uL (3.6-10.0) H 08/01/21 04:59 RBC 4.88 X10^6/uL (4.7-6.0) 08/01/21 04:59 Hgb 14.0 g/dL (13.5-18.0) 08/01/21 04:59 Hct 40.3 % (42.0-54.0) L 08/01/21 04:59 MCV 82.6 fL (80.0-100.0) 08/01/21 04:59 MCH 28.6 pg (27.0-34.0) 08/01/21 04:59 MCHC 34.6 g/dL (33.0-35.0) 08/01/21 04:59 RDW 13.2 % (11.6-16.5) 08/01/21 04:59 Plt Count 569 X10^3/uL (150.0-450.0) H 08/01/21 04:59 Plt Count Comment Increased (ADEQUATE) 08/01/21 04:59 MPV 8.5 fL (7.4-11.0) 08/01/21 04:59 Neut % (Auto) 90.5 % (42.0-75.0) H 08/01/21 04:59 Lymph % (Auto) 6.0 % (21.0-51.0) L 08/01/21 04:59 [place] % (Auto) 3.0 % (0.0-13.0) 08/01/21 04:59 Eos % (Auto) 0.0 % (0.9-2.9) L 08/01/21 04:59 Baso % (Auto) 0.5 % (0.2-1.0) 08/01/21 04:59 Neut # (Auto) 16.8 x10^3/uL (2.2-4.8) H 08/01/21 04:59 Lymph # (Auto) 1.1 X10^3/uL (1.3-2.9) L 08/01/21 04:59 [place] # (Auto) 0.6 x10^3/uL (0.3-0.8) 08/01/21 04:59 Eos # (Auto) 0.0 x10^3/uL (0.0-0.2) 08/01/21 04:59 Baso # (Auto) 0.1 X10^3/uL (0.0-0.1) 08/01/21 04:59 Absolute Nucleated RBC 0.1 /100WBC 08/01/21 04:59 Total Counted 100 08/01/21 04:59 Neutrophils % (Manual) 96 % (39-76) H 08/01/21 04:59 Band Neutrophils % 2 % (0-10) 07/31/21 04:11 Lymphocytes % (Manual) 3 % (13-43) L 08/01/21 04:59 Monocytes % (Manual) 1 % (4-9) L 08/01/21 04:59 Eosinophils % (Manual) Cancelled 07/27/21 04:35 Basophils % (Manual) Cancelled 07/27/21 04:35 Metamyelocytes % Cancelled 07/27/21 04:35 Myelocytes % Cancelled 07/27/21 04:35 Promyelocytes % Cancelled 07/27/21 04:35 Nucleated RBCs Cancelled 07/27/21 04:35 Atypical Lymphocytes Cancelled 07/27/21 04:35 Blast Cells Cancelled 07/27/21 04:35 Smudge Cells Cancelled 07/27/21 04:35 Toxic Granulation Cancelled 07/27/21 04:35 Dohle Bodies Cancelled 07/27/21 04:35 Pat Rods Cancelled 07/27/21 04:35 Plt Clumps, EDTA Cancelled 07/27/21 04:35 Giant Platelets Cancelled 07/27/21 04:35 Plt Morphology Comment Normal (NORMAL) 08/01/21 04:59 RBC Morphology Normal (NORMAL) 08/01/21 04:59 Dimorphic RBCs Cancelled 07/27/21 04:35 Polychromasia Cancelled 07/27/21 04:35 Hypochromasia Cancelled 07/27/21 04:35 Poikilocytosis Cancelled 07/27/21 04:35 Basophilic Stippling Cancelled 07/27/21 04:35 Anisocytosis Cancelled 07/27/21 04:35 Microcytosis Cancelled 07/27/21 04:35 Macrocytosis Cancelled 07/27/21 04:35 Spherocytes Cancelled 07/27/21 04:35 Pappenheimer Bodies Cancelled 07/27/21 04:35 Sickle Cells Cancelled 07/27/21 04:35 Target Cells Cancelled 07/27/21 04:35 Tear Drop Cells Cancelled 07/27/21 04:35 Ovalocytes Cancelled 07/27/21 04:35 Stomatocytes Cancelled 07/27/21 04:35 Helmet Cells Cancelled 07/27/21 04:35 [place] Bodies Cancelled 07/27/21 04:35 [place] Rings Cancelled 07/27/21 04:35 [place] Cells Cancelled 07/27/21 04:35 Crenated Cell Cancelled 07/27/21 04:35 Acanthocytes (Spur) Cancelled 07/27/21 04:35 Rouleaux Cancelled 07/27/21 04:35 Schistocytes Cancelled 07/27/21 04:35 D-Dimer 1.20 ug/ml (0.0-0.57) H* 07/31/21 10:30 Sample Site Lr 08/01/21 05:00 ABG pH 7.440 (7.35-7.45) 08/01/21 05:00 ABG pCO2 39.0 mmHg (35.0-45.0) 08/01/21 05:00 ABG pO2 62.0 mmHg (80.0-100.0) L 08/01/21 05:00 ABG HCO3 26.5 mmol/L (22-26) H 08/01/21 05:00 ABG O2 Saturation 92.0 % (90-100) 08/01/21 05:00 ABG Base Excess 2.2 mmol/L (-2.0-2.0) H 08/01/21 05:00 Cyril Test Pos 08/01/21 05:00 A-a Gradient 531.0 mmHg 08/01/21 05:00 FiO2 90.0 08/01/21 05:00 Blood Gas Comments Pt roberto well llj feltmaker 08/01/21 05:00 Sodium 134 mmol/L (136-145) L 08/01/21 04:59 Corrected Sodium 140 mmol/L (136-145) 08/01/21 04:59 Potassium 4.3 mmol/L (3.5-5.1) 08/01/21 04:59 Chloride 100 mmol/L (98-107) 08/01/21 04:59 Carbon Dioxide 24.6 mmol/L (21-32) 08/01/21 04:59 BUN 20 mg/dL (7-18) H 08/01/21 04:59 Creatinine 0.79 mg/dL (0.70-1.30) 08/01/21 04:59 Est GFR (MDRD) Af Amer > 60 (>60) 08/01/21 04:59 Est GFR (MDRD) Non-Af > 60 (>60) 08/01/21 04:59 Glucose 342 mg/dL (65-99) H 08/01/21 04:59 POC Glucose (mg/dL) 329 mg/dL (65-99) H 08/01/21 11:15 Hemoglobin A1c 11.4 % 07/31/21 19:32 Lactic Acid 1.7 mmol/L (0.4-2.0) 07/24/21 23:40 Calcium 8.1 mg/dL (8.5-10.1) L 08/01/21 04:59 Corrected Calcium 9.4 mg/dL (8.5-10.1) 08/01/21 04:59 Magnesium 2.4 mg/dL (1.7-2.9) 07/28/21 01:10 Total Bilirubin 0.60 mg/dL (0.2-1.0) 08/01/21 04:59 AST 8 Units/L (15-37) L 08/01/21 04:59 ALT 96 Units/L (12-78) H 08/01/21 04:59 Alkaline Phosphatase 92 Units/L (46-116) 08/01/21 04:59 Troponin I < 0.02 ng/mL (0-1.5) 07/25/21 03:42 C-Reactive Protein 7.50 mg/L (0-3.0) H 07/31/21 10:30 Total Protein 6.0 g/dL (6.4-8.2) L 08/01/21 04:59 Albumin 2.4 g/dL (3.4-5.0) L 08/01/21 04:59 Globulin 3.6 g/dL (2.5-4.5) 08/01/21 04:59 Albumin/Globulin Ratio 0.7 Ratio (1.1-2.1) L 08/01/21 04:59 SARS-CoV-2 (PCR) Positive (NEGATIVE) A 07/25/21 01:46 Influenza Type A (PCR) Negative (NEGATIVE) 07/25/21 01:46 Influenza Type B (PCR) Negative (NEGATIVE) 07/25/21 01:46 RSV (PCR) Negative (NEGATIVE) 07/25/21 01:46 Plan (1) Pneumonia due to COVID-19 virus: Status: Acute (2) Acute respiratory failure with hypoxia: Status: Acute (3) Hyperglycemia: Status: Acute
[2021-08-01] MEDS: SNACK - Diabetic Appropriate PO SCH (20:14)
[2021-08-01] MEDS: MUCOMYST 20% 200 MG/ML NEB SCH (22:22)
[2021-08-02] MEDS: ASCORBIC ACID INJ MULTI-DOSE VIAL 1,500 MG in NS 100 ML IV 100 ML IV SCH ×4 (02:40→20:40)
[2021-08-02] MEDS: SOLU-Medrol 125 MG VIAL IVP SCH ×3 (02:41→17:27)
[2021-08-02] MEDS: ROBITUSSIN DM PO SCH ×6 (02:41→23:21)
[2021-08-02] MEDS ORDERED: NS 100 ML IV 100 ML ONE (04:40)
[2021-08-02] MEDS: ZOSYN VIAL 4.5 GRAMS 4.5 G in NS 100 ML IV + SPIKE MINIBAG* 100 ML IV SCH ×3 (05:16→21:01)
[2021-08-02] MEDS: HumuLIN R SC PRN ×4 (05:36→20:41)
[2021-08-02 05:54] LABS: BASOPHILS # (AUTO) 0.1 X10^3/uL (0.0-0.1); BASOPHILS % (AUTO) 0.4 % (0.2-1.0); EOSINOPHILS % (AUTO) 0.1 % (0.9-2.9); HEMATOCRIT 39.1 % (42.0-54.0); HEMOGLOBIN 13.5 g/dL (13.5-18.0); LYMPHOCYTES # (AUTO) 1.2 X10^3/uL (1.3-2.9); LYMPHOCYTES % (AUTO) 6.7 % (21.0-51.0); MEAN CORPUSCULAR HEMOGLOBIN 28.5 pg (27.0-34.0); MEAN CORPUSCULAR HGB CONC 34.6 g/dL (33.0-35.0); MEAN CORPUSCULAR VOLUME 82.3 fL (80.0-100.0); MEAN PLATELET VOLUME 8.5 fL (7.4-11.0); MONOCYTES % (AUTO) 5.4 % (0.0-13.0); NEUTROPHILS # (AUTO) 15.7 x10^3/uL (2.2-4.8); NEUTROPHILS % (AUTO) 87.4 % (42.0-75.0); PLATELET COUNT 540 X10^3/uL (150.0-450.0); RED BLOOD COUNT 4.75 X10^6/uL (4.7-6.0); RED CELL DISTRIBUTION WIDTH 13.3 % (11.6-16.5); WHITE BLOOD COUNT 17.9 X10^3/uL (3.6-10.0)
[2021-08-02 06:03] LABS: ALANINE AMINOTRANSFERASE 99 Units/L (12-78); ALBUMIN 2.4 g/dL (3.4-5.0); ALKALINE PHOSPHATASE 81 Units/L (46-116); BLOOD UREA NITROGEN 21 mg/dL (7-18); CALCIUM 7.9 mg/dL (8.5-10.1); CARBON DIOXIDE 25.2 mmol/L (21-32); CHLORIDE 100 mmol/L (98-107); COR CA(FOR HYPOALB) 9.2 mg/dL (8.5-10.1); COR NA(FOR HYPERGLY) 139 mmol/L (136-145); CREATININE 0.89 mg/dL (0.70-1.30); SODIUM 133 mmol/L (136-145); TOTAL PROTEIN 5.7 g/dL (6.4-8.2); eGFR NON BLACK RACES > 60 (>60)
[2021-08-02 06:16] LABS: ASPARTATE AMINO TRANSFERASE 16 Units/L (15-37)
--- NOTE | 2021-08-02 06:36 | RAD ---
HISTORYCOVID PNEUMONIASTUDYCHEST, 1 [id number]/13/2021.TECHNIQUEAP view of the chestFINDINGSCardiac and mediastinal contours are within normal limits. No significant change in bilateral airspace and interstitial opacities. No definite pleural effusion or pneumothorax.IMPRESSIONNo significant change.Electronically signed by: Polo Carter (Aug 02, 2021 06:34:50)
[2021-08-02] MEDS: PULMICORT NEB TX 0.5 MG NEB SCH ×2 (08:40→21:20)
[2021-08-02] MEDS: MUCOMYST (RESPIRATORY USE ONLY) NEB SCH ×2 (08:40→23:14)
[2021-08-02] MEDS: BROVANA IN SCH ×2 (08:40→21:20)
[2021-08-02] MEDS: PROVENTIL NEB TX 0.083% 2.5MG/ 3ML NEB SCH ×2 (08:40→21:20)
[2021-08-02] MEDS ORDERED: LEVEMIR SC SCH (09:00)
[2021-08-02] MEDS: VITAMIN D3 125 mcg (5,000 UNITS) PO SCH (09:09)
[2021-08-02] MEDS: ZINC SULFATE PO SCH ×2 (09:09→20:41)
[2021-08-02] MEDS: PEPCID TAB 40 MG PO SCH ×2 (09:09→20:41)
[2021-08-02] MEDS: LOVENOX INJ 40 MG SYR SC SCH ×2 (09:10→20:40)
[2021-08-02] MEDS: VITAMIN A PO SCH (09:15)
--- NOTE | 2021-08-02 12:01 | PCM.PROG ---
Progress Note Progress Note for Day of Date of Exam: 08/02/21 Subjective Subjective: Patient seen at bedside, no acute events overnight. He remains on HHFNC at FiO2 87%. He states he feels a lot better each day. He denies fever or chills. He continues to have dry cough. He did use the smart vest last night which helped a little bit. He has been ambulating in the room. He reports good appetite. He does not appear to be in any respiratory distress. He has been laying on his sides and self proning. Labs: WBC: 17.9 Hgb 13.5 Glucose 360 BUN/Cr: 21/0.89 AB.44/39/62/26.5 sats 92% CTA: no PE, bilateral opacities CXR(08/01/21): no change in diffuse bilateral pulmonary infiltrates. Blood Cx : neg Plan: Wean HHFNC O2 as tolerated to keep sats > 88%. Patient has received one dose of Actemra and completed Remdesivir. Continue nebs, pulmicort and IS. Continue smart vest. Continue anti-tussives, tessalon pearls and mucomyst. Continue IV antibiotics and taper solumedrol. Will DC doxycycline. Continue self proning and laying on the side. Continue vitamin support and lovenox. Continue levemir and SSI for hyperglycemia. Will add glipizide for diabetes control. Diabetic education as per staff. Monitor AM labs and imaging. Time spent for clinical assessment, reviewing labs/imaging, physical exam, decision making greater than 45 mins. Past Medical Family Social History Past Med/Fam/Surg Hx: No changes since H&P Allergies: Allergies No Known Drug Allergies Allergy (Verified 07/25/21 00:18) Review of Systems ROS: No change since H&P Vital Signs and I&O's Vital Signs: Temperature 98.3 F Pulse Rate [Left Brachial] 60 Pulse Rate 81 Respiratory Rate 18 Blood Pressure [Left Arm] 120/76 Blood Pressure 117/59 O2 Sat by Pulse Oximetry 97 Intake and Output: Intake & Output 07/30/21 07/31/21 08/01/21 08/02/21 23:59 23:59 23:59 23:59 Intake Total 3005 / 3005 6169 / 6169 4472 / 4472 850 / 850 Output Total 2225 / 2225 600 / 600 280 / 280 Balance 3005 / 3005 3944 / 3944 3872 / 3872 570 / 570 Physical Exam Oriented: Normal Eyes: Normal Ear: Normal Nose: Normal Throat: Normal Respiratory: Generalized and Diminished Cardiovascular: Normal Auscultation: Bowel Sounds: Normal Tenderness: Normal Skin: Normal Musculoskeletal: Normal Psychiatric: Normal Mood Description: Calm Speech Pattern: Clear and Appropriate Laboratory and Diagnostics Result Diagrams: 08/02/21 05:27 08/02/21 05:27 Labs: 07/24/21 23:49 Blood Blood Culture - Final 07/24/21 23:40 Blood Blood Culture - Final Laboratory WBC 17.9 X10^3/uL (3.6-10.0) H 08/02/21 05:27 RBC 4.75 X10^6/uL (4.7-6.0) 08/02/21 05:27 Hgb 13.5 g/dL (13.5-18.0) 08/02/21 05:27 Hct 39.1 % (42.0-54.0) L 08/02/21 05:27 MCV 82.3 fL (80.0-100.0) 08/02/21 05:27 MCH 28.5 pg (27.0-34.0) 08/02/21 05:27 MCHC 34.6 g/dL (33.0-35.0) 08/02/21 05:27 RDW 13.3 % (11.6-16.5) 08/02/21 05:27 Plt Count 540 X10^3/uL (150.0-450.0) H 08/02/21 05:27 Plt Count Comment Increased (ADEQUATE) 08/01/21 04:59 MPV 8.5 fL (7.4-11.0) 08/02/21 05:27 Neut % (Auto) 87.4 % (42.0-75.0) H 08/02/21 05:27 Lymph % (Auto) 6.7 % (21.0-51.0) L 08/02/21 05:27 [place] % (Auto) 5.4 % (0.0-13.0) 08/02/21 05:27 Eos % (Auto) 0.1 % (0.9-2.9) L 08/02/21 05:27 Baso % (Auto) 0.4 % (0.2-1.0) 08/02/21 05:27 Neut # (Auto) 15.7 x10^3/uL (2.2-4.8) H 08/02/21 05:27 Lymph # (Auto) 1.2 X10^3/uL (1.3-2.9) L 08/02/21 05:27 [place] # (Auto) 1.0 x10^3/uL (0.3-0.8) H 08/02/21 05:27 Eos # (Auto) 0.0 x10^3/uL (0.0-0.2) 08/02/21 05:27 Baso # (Auto) 0.1 X10^3/uL (0.0-0.1) 08/02/21 05:27 Absolute Nucleated RBC 0.1 /100WBC 08/02/21 05:27 Total Counted 100 08/01/21 04:59 Neutrophils % (Manual) 96 % (39-76) H 08/01/21 04:59 Band Neutrophils % 2 % (0-10) 07/31/21 04:11 Lymphocytes % (Manual) 3 % (13-43) L 08/01/21 04:59 Monocytes % (Manual) 1 % (4-9) L 08/01/21 04:59 Eosinophils % (Manual) Cancelled 07/27/21 04:35 Basophils % (Manual) Cancelled 07/27/21 04:35 Metamyelocytes % Cancelled 07/27/21 04:35 Myelocytes % Cancelled 07/27/21 04:35 Promyelocytes % Cancelled 07/27/21 04:35 Nucleated RBCs Cancelled 07/27/21 04:35 Atypical Lymphocytes Cancelled 07/27/21 04:35 Blast Cells Cancelled 07/27/21 04:35 Smudge Cells Cancelled 07/27/21 04:35 Toxic Granulation Cancelled 07/27/21 04:35 Dohle Bodies Cancelled 07/27/21 04:35 Pat Rods Cancelled 07/27/21 04:35 Plt Clumps, EDTA Cancelled 07/27/21 04:35 Giant Platelets Cancelled 07/27/21 04:35 Plt Morphology Comment Normal (NORMAL) 08/01/21 04:59 RBC Morphology Normal (NORMAL) 08/01/21 04:59 Dimorphic RBCs Cancelled 07/27/21 04:35 Polychromasia Cancelled 07/27/21 04:35 Hypochromasia Cancelled 07/27/21 04:35 Poikilocytosis Cancelled 07/27/21 04:35 Basophilic Stippling Cancelled 07/27/21 04:35 Anisocytosis Cancelled 07/27/21 04:35 Microcytosis Cancelled 07/27/21 04:35 Macrocytosis Cancelled 07/27/21 04:35 Spherocytes Cancelled 07/27/21 04:35 Pappenheimer Bodies Cancelled 07/27/21 04:35 Sickle Cells Cancelled 07/27/21 04:35 Target Cells Cancelled 07/27/21 04:35 Tear Drop Cells Cancelled 07/27/21 04:35 Ovalocytes Cancelled 07/27/21 04:35 Stomatocytes Cancelled 07/27/21 04:35 Helmet Cells Cancelled 07/27/21 04:35 [place] Bodies Cancelled 07/27/21 04:35 [place] Rings Cancelled 07/27/21 04:35 [place] Cells Cancelled 07/27/21 04:35 Crenated Cell Cancelled 07/27/21 04:35 Acanthocytes (Spur) Cancelled 07/27/21 04:35 Rouleaux Cancelled 07/27/21 04:35 Schistocytes Cancelled 07/27/21 04:35 D-Dimer 1.20 ug/ml (0.0-0.57) H* 07/31/21 10:30 Sample Site Lr 08/01/21 05:00 ABG pH 7.440 (7.35-7.45) 08/01/21 05:00 ABG pCO2 39.0 mmHg (35.0-45.0) 08/01/21 05:00 ABG pO2 62.0 mmHg (80.0-100.0) L 08/01/21 05:00 ABG HCO3 26.5 mmol/L (22-26) H 08/01/21 05:00 ABG O2 Saturation 92.0 % (90-100) 08/01/21 05:00 ABG Base Excess 2.2 mmol/L (-2.0-2.0) H 08/01/21 05:00 Cyril Test Pos 08/01/21 05:00 A-a Gradient 531.0 mmHg 08/01/21 05:00 FiO2 90.0 08/01/21 05:00 Blood Gas Comments Pt roberto well llj searchlight operator 08/01/21 05:00 Sodium 133 mmol/L (136-145) L 08/02/21 05:27 Corrected Sodium 139 mmol/L (136-145) 08/02/21 05:27 Potassium 4.2 mmol/L (3.5-5.1) 08/02/21 05:27 Chloride 100 mmol/L (98-107) 08/02/21 05:27 Carbon Dioxide 25.2 mmol/L (21-32) 08/02/21 05:27 BUN 21 mg/dL (7-18) H 08/02/21 05:27 Creatinine 0.89 mg/dL (0.70-1.30) 08/02/21 05:27 Est GFR (MDRD) Af Amer > 60 (>60) 08/02/21 05:27 Est GFR (MDRD) Non-Af > 60 (>60) 08/02/21 05:27 Glucose 360 mg/dL (65-99) H 08/02/21 05:27 POC Glucose (mg/dL) 288 mg/dL (65-99) H 08/02/21 10:58 Hemoglobin A1c 11.4 % 07/31/21 19:32 Lactic Acid 1.7 mmol/L (0.4-2.0) 07/24/21 23:40 Calcium 7.9 mg/dL (8.5-10.1) L 08/02/21 05:27 Corrected Calcium 9.2 mg/dL (8.5-10.1) 08/02/21 05:27 Magnesium 2.4 mg/dL (1.7-2.9) 07/28/21 01:10 Total Bilirubin 0.50 mg/dL (0.2-1.0) 08/02/21 05:27 AST 16 Units/L (15-37) 08/02/21 05:27 ALT 99 Units/L (12-78) H 08/02/21 05:27 Alkaline Phosphatase 81 Units/L (46-116) 08/02/21 05:27 Troponin I < 0.02 ng/mL (0-1.5) 07/25/21 03:42 C-Reactive Protein 2.70 mg/L (0-3.0) 08/02/21 05:27 Total Protein 5.7 g/dL (6.4-8.2) L 08/02/21 05:27 Albumin 2.4 g/dL (3.4-5.0) L 08/02/21 05:27 Globulin 3.3 g/dL (2.5-4.5) 08/02/21 05:27 Albumin/Globulin Ratio 0.7 Ratio (1.1-2.1) L 08/02/21 05:27 SARS-CoV-2 (PCR) Positive (NEGATIVE) A 07/25/21 01:46 Influenza Type A (PCR) Negative (NEGATIVE) 07/25/21 01:46 Influenza Type B (PCR) Negative (NEGATIVE) 07/25/21 01:46 RSV (PCR) Negative (NEGATIVE) 07/25/21 01:46 Plan (1) Pneumonia due to COVID-19 virus: Status: Acute (2) Acute respiratory failure with hypoxia: Status: Acute (3) Hyperglycemia: Status: Acute (4) Type 2 diabetes mellitus: Status: Acute Qualifiers: Diabetes mellitus complication status: without complication 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
[2021-08-02] MEDS: GLUCOTROL PO SCH (16:54)
[2021-08-02] MEDS ORDERED: SNACK - Diabetic Appropriate PO SCH (20:00)
[2021-08-02] MEDS: SNACK - Diabetic Appropriate PO SCH (20:39)
[2021-08-02] MEDS: MUCOMYST 20% 200 MG/ML NEB SCH (21:20)
[2021-08-03] MEDS: SOLU-Medrol 125 MG VIAL IVP SCH ×2 (00:43→09:24)
[2021-08-03] MEDS: ROBITUSSIN DM PO SCH ×6 (02:15→23:16)
[2021-08-03] MEDS: ASCORBIC ACID INJ MULTI-DOSE VIAL 1,500 MG in NS 100 ML IV 100 ML IV SCH ×4 (02:15→21:06)
[2021-08-03] MEDS ORDERED: NS 100 ML IV 100 ML ONE ×2 (04:08→14:24)
[2021-08-03] MEDS: ZOSYN VIAL 4.5 GRAMS 4.5 G in NS 100 ML IV + SPIKE MINIBAG* 100 ML IV SCH (05:06)
[2021-08-03] MEDS: HumuLIN R SC PRN ×4 (05:44→21:08)
[2021-08-03] MEDS: GLUCOTROL PO SCH ×2 (06:03→17:00)
[2021-08-03 06:20] LABS: BASOPHILS # (AUTO) 0.1 X10^3/uL (0.0-0.1); BASOPHILS % (AUTO) 0.9 % (0.2-1.0); EOSINOPHILS # (AUTO) 0.1 x10^3/uL (0.0-0.2); EOSINOPHILS % (AUTO) 0.4 % (0.9-2.9); HEMATOCRIT 37.6 % (42.0-54.0); HEMOGLOBIN 13.1 g/dL (13.5-18.0); LYMPHOCYTES # (AUTO) 1.7 X10^3/uL (1.3-2.9); LYMPHOCYTES % (AUTO) 12.2 % (21.0-51.0); MEAN CORPUSCULAR HEMOGLOBIN 29.1 pg (27.0-34.0); MEAN CORPUSCULAR HGB CONC 34.8 g/dL (33.0-35.0); MEAN CORPUSCULAR VOLUME 83.6 fL (80.0-100.0); MONOCYTES # (AUTO) 0.8 x10^3/uL (0.3-0.8); MONOCYTES % (AUTO) 5.5 % (0.0-13.0); PLATELET COUNT 436 X10^3/uL (150.0-450.0); RED BLOOD COUNT 4.51 X10^6/uL (4.7-6.0); RED CELL DISTRIBUTION WIDTH 13.3 % (11.6-16.5); WHITE BLOOD COUNT 13.6 X10^3/uL (3.6-10.0)
[2021-08-03 06:31] LABS: ALANINE AMINOTRANSFERASE 77 Units/L (12-78); ALBUMIN 2.4 g/dL (3.4-5.0); ALKALINE PHOSPHATASE 73 Units/L (46-116); BLOOD UREA NITROGEN 18 mg/dL (7-18); CALCIUM 7.9 mg/dL (8.5-10.1); CARBON DIOXIDE 28.8 mmol/L (21-32); CHLORIDE 101 mmol/L (98-107); COR CA(FOR HYPOALB) 9.2 mg/dL (8.5-10.1); COR NA(FOR HYPERGLY) 138 mmol/L (136-145); CREATININE 0.77 mg/dL (0.70-1.30); SODIUM 134 mmol/L (136-145); TOTAL PROTEIN 5.7 g/dL (6.4-8.2); eGFR NON BLACK RACES > 60 (>60)
[2021-08-03 06:43] LABS: ASPARTATE AMINO TRANSFERASE < 6 Units/L (15-37)
--- NOTE | 2021-08-03 07:02 | RAD ---
HISTORYCOVID PNEUMONIASTUDYCHEST, 1 [id number]/14/2021.TECHNIQUEAP view of the chestFINDINGSCardiac and mediastinal contours are within normal limits. No significant change in bilateral airspace and interstitial opacities. No definite pleural effusion or pneumothorax.IMPRESSIONNo significant change.Electronically signed by: Polo Carter (Aug 03, 2021 07:00:07)
[2021-08-03] MEDS: PROVENTIL NEB TX 0.083% 2.5MG/ 3ML NEB SCH ×2 (07:45→20:07)
[2021-08-03] MEDS: MUCOMYST 20% 200 MG/ML NEB SCH ×3 (07:45→20:07)
[2021-08-03] MEDS: PULMICORT NEB TX 0.5 MG NEB SCH ×2 (07:45→20:07)
[2021-08-03] MEDS: BROVANA IN SCH ×2 (09:00→20:07)
[2021-08-03] MEDS: LOVENOX INJ 40 MG SYR SC SCH ×2 (09:19→21:07)
[2021-08-03] MEDS: LEVEMIR SC SCH (09:21)
[2021-08-03] MEDS: VITAMIN A PO SCH (09:24)
[2021-08-03] MEDS: PEPCID TAB 40 MG PO SCH ×2 (09:24→21:07)
[2021-08-03] MEDS: ZINC SULFATE PO SCH ×2 (09:24→21:08)
[2021-08-03] MEDS: VITAMIN D3 125 mcg (5,000 UNITS) PO SCH (09:25)
[2021-08-03] MEDS: TUSSIONEX PENNKINETIC SUSP PO PRN (09:39)
--- NOTE | 2021-08-03 09:42 | PCM.PROG ---
Progress Note Progress Note for Day of Date of Exam: 08/03/21 Subjective Subjective: Patient seen at bedside, no acute events overnight. He has been weaned down on his HHFNC to FiO2 58% this morning. He reports feeling well. His cough has improved. He denies fever or chills. He has been ambulating in the room. He reports good appetite. He does not appear to be in any respiratory distress. He has been laying on his sides and self proning. Labs: WBC: 13.6 Hgb 13.1 Glucose 283 BUN/Cr: 18/0.77 AB.44/39/62/26.5 sats 92% CTA: no PE, bilateral opacities CXR(08/03/21): no change in diffuse bilateral pulmonary infiltrates. Blood Cx : neg Plan: Wean HHFNC O2 as tolerated to keep sats > 88%. Switch to nasal canula as tolerated. Patient has received one dose of Actemra and completed Remdesivir. Continue nebs, pulmicort and IS. Continue smart vest. Continue anti-tussives, tessalon pearls and mucomyst. Continue IV antibiotics and taper solumedrol. Continue self proning and laying on the side. Continue vitamin support and lovenox. Increase levemir and continue SSI for hyperglycemia. Continue glipizide. Diabetic education as per staff. Monitor AM labs and imaging. Time spent for clinical assessment, reviewing labs/imaging, physical exam, decision making greater than 45 mins. Past Medical Family Social History Past Med/Fam/Surg Hx: No changes since H&P Allergies: Allergies No Known Drug Allergies Allergy (Verified 07/25/21 00:18) Review of Systems ROS: No change since H&P Vital Signs and I&O's Vital Signs: Temperature 97.6 F Pulse Rate [Left Brachial] 60 Pulse Rate 76 Respiratory Rate 18 Blood Pressure [Left Arm] 137/62 Blood Pressure 117/59 O2 Sat by Pulse Oximetry 86 Intake and Output: Intake & Output 07/31/21 08/01/21 08/02/21 08/03/21 23:59 23:59 23:59 23:59 Intake Total 6169 / 6169 4472 / 4472 2035 / 2035 580 / 580 Output Total 2225 / 2225 600 / 600 3180 / 3180 Balance 3944 / 3944 3872 / 3872 -1145 / -1145 580 / 580 Physical Exam Oriented: Normal Eyes: Normal Ear: Normal Nose: Normal Throat: Normal Respiratory: Generalized and Diminished (improved air entry ) Cardiovascular: Normal Auscultation: Bowel Sounds: Normal Tenderness: Normal Skin: Normal Musculoskeletal: Normal Psychiatric: Normal Mood Description: Calm Speech Pattern: Clear and Appropriate Laboratory and Diagnostics Result Diagrams: 08/03/21 05:30 08/03/21 05:30 Labs: 07/24/21 23:49 Blood Blood Culture - Final 07/24/21 23:40 Blood Blood Culture - Final Laboratory WBC 13.6 X10^3/uL (3.6-10.0) H 08/03/21 05:30 RBC 4.51 X10^6/uL (4.7-6.0) L 08/03/21 05:30 Hgb 13.1 g/dL (13.5-18.0) L 08/03/21 05:30 Hct 37.6 % (42.0-54.0) L 08/03/21 05:30 MCV 83.6 fL (80.0-100.0) 08/03/21 05:30 MCH 29.1 pg (27.0-34.0) 08/03/21 05:30 MCHC 34.8 g/dL (33.0-35.0) 08/03/21 05:30 RDW 13.3 % (11.6-16.5) 08/03/21 05:30 Plt Count 436 X10^3/uL (150.0-450.0) 08/03/21 05:30 Plt Count Comment Increased (ADEQUATE) 08/01/21 04:59 MPV 9.0 fL (7.4-11.0) 08/03/21 05:30 Neut % (Auto) 81.0 % (42.0-75.0) H 08/03/21 05:30 Lymph % (Auto) 12.2 % (21.0-51.0) L 08/03/21 05:30 [place] % (Auto) 5.5 % (0.0-13.0) 08/03/21 05:30 Eos % (Auto) 0.4 % (0.9-2.9) L 08/03/21 05:30 Baso % (Auto) 0.9 % (0.2-1.0) 08/03/21 05:30 Neut # (Auto) 11.0 x10^3/uL (2.2-4.8) H 08/03/21 05:30 Lymph # (Auto) 1.7 X10^3/uL (1.3-2.9) 08/03/21 05:30 [place] # (Auto) 0.8 x10^3/uL (0.3-0.8) 08/03/21 05:30 Eos # (Auto) 0.1 x10^3/uL (0.0-0.2) 08/03/21 05:30 Baso # (Auto) 0.1 X10^3/uL (0.0-0.1) 08/03/21 05:30 Absolute Nucleated RBC 0.1 /100WBC 08/03/21 05:30 Total Counted 100 08/01/21 04:59 Neutrophils % (Manual) 96 % (39-76) H 08/01/21 04:59 Band Neutrophils % 2 % (0-10) 07/31/21 04:11 Lymphocytes % (Manual) 3 % (13-43) L 08/01/21 04:59 Monocytes % (Manual) 1 % (4-9) L 08/01/21 04:59 Eosinophils % (Manual) Cancelled 07/27/21 04:35 Basophils % (Manual) Cancelled 07/27/21 04:35 Metamyelocytes % Cancelled 07/27/21 04:35 Myelocytes % Cancelled 07/27/21 04:35 Promyelocytes % Cancelled 07/27/21 04:35 Nucleated RBCs Cancelled 07/27/21 04:35 Atypical Lymphocytes Cancelled 07/27/21 04:35 Blast Cells Cancelled 07/27/21 04:35 Smudge Cells Cancelled 07/27/21 04:35 Toxic Granulation Cancelled 07/27/21 04:35 Dohle Bodies Cancelled 07/27/21 04:35 Pat Rods Cancelled 07/27/21 04:35 Plt Clumps, EDTA Cancelled 07/27/21 04:35 Giant Platelets Cancelled 07/27/21 04:35 Plt Morphology Comment Normal (NORMAL) 08/01/21 04:59 RBC Morphology Normal (NORMAL) 08/01/21 04:59 Dimorphic RBCs Cancelled 07/27/21 04:35 Polychromasia Cancelled 07/27/21 04:35 Hypochromasia Cancelled 07/27/21 04:35 Poikilocytosis Cancelled 07/27/21 04:35 Basophilic Stippling Cancelled 07/27/21 04:35 Anisocytosis Cancelled 07/27/21 04:35 Microcytosis Cancelled 07/27/21 04:35 Macrocytosis Cancelled 07/27/21 04:35 Spherocytes Cancelled 07/27/21 04:35 Pappenheimer Bodies Cancelled 07/27/21 04:35 Sickle Cells Cancelled 07/27/21 04:35 Target Cells Cancelled 07/27/21 04:35 Tear Drop Cells Cancelled 07/27/21 04:35 Ovalocytes Cancelled 07/27/21 04:35 Stomatocytes Cancelled 07/27/21 04:35 Helmet Cells Cancelled 07/27/21 04:35 [place] Bodies Cancelled 07/27/21 04:35 [place] Rings Cancelled 07/27/21 04:35 [place] Cells Cancelled 07/27/21 04:35 Crenated Cell Cancelled 07/27/21 04:35 Acanthocytes (Spur) Cancelled 07/27/21 04:35 Rouleaux Cancelled 07/27/21 04:35 Schistocytes Cancelled 07/27/21 04:35 D-Dimer 1.20 ug/ml (0.0-0.57) H* 07/31/21 10:30 Sample Site Lr 08/01/21 05:00 ABG pH 7.440 (7.35-7.45) 08/01/21 05:00 ABG pCO2 39.0 mmHg (35.0-45.0) 08/01/21 05:00 ABG pO2 62.0 mmHg (80.0-100.0) L 08/01/21 05:00 ABG HCO3 26.5 mmol/L (22-26) H 08/01/21 05:00 ABG O2 Saturation 92.0 % (90-100) 08/01/21 05:00 ABG Base Excess 2.2 mmol/L (-2.0-2.0) H 08/01/21 05:00 Cyril Test Pos 08/01/21 05:00 A-a Gradient 531.0 mmHg 08/01/21 05:00 FiO2 90.0 08/01/21 05:00 Blood Gas Comments 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0) 07/24/21 23:40 Calcium 7.9 mg/dL (8.5-10.1) L 08/03/21 05:30 Corrected Calcium 9.2 mg/dL (8.5-10.1) 08/03/21 05:30 Magnesium 2.4 mg/dL (1.7-2.9) 07/28/21 01:10 Total Bilirubin 0.40 mg/dL (0.2-1.0) 08/03/21 05:30 AST < 6 Units/L (15-37) L 08/03/21 05:30 ALT 77 Units/L (12-78) 08/03/21 05:30 Alkaline Phosphatase 73 Units/L (46-116) 08/03/21 05:30 Troponin I < 0.02 ng/mL (0-1.5) 07/25/21 03:42 C-Reactive Protein 2.70 mg/L (0-3.0) 08/02/21 05:27 Total Protein 5.7 g/dL (6.4-8.2) L 08/03/21 05:30 Albumin 2.4 g/dL (3.4-5.0) L 08/03/21 05:30 Globulin 3.3 g/dL (2.5-4.5) 08/03/21 05:30 Albumin/Globulin Ratio 0.7 Ratio (1.1-2.1) L 08/03/21 05:30 SARS-CoV-2 (PCR) Positive (NEGATIVE) A 07/25/21 01:46 Influenza Type A (PCR) Negative (NEGATIVE) 07/25/21 01:46 Influenza Type B (PCR) Negative (NEGATIVE) 07/25/21 01:46 RSV (PCR) Negative (NEGATIVE) 07/25/21 01:46 Plan (1) Pneumonia due to COVID-19 virus: Status: Acute (2) Acute respiratory failure with hypoxia: Status: Acute (3) Hyperglycemia: Status: Acute (4) Type 2 diabetes mellitus: Status: Acute Qualifiers: Diabetes mellitus complication status: without complication Diabetes mellitus exterminator helper termite insulin use: without exterminator helper termite use Qualified Code(s): E11.9 - Type 2 diabetes mellitus without complications
[2021-08-03] MEDS: MUCOMYST (RESPIRATORY USE ONLY) NEB SCH ×2 (14:00→21:23)
[2021-08-03] MEDS ORDERED: SOLU-Medrol 125 MG VIAL IVP SCH (21:00)
[2021-08-03] MEDS: SNACK - Diabetic Appropriate PO SCH (21:06)
[2021-08-03] MEDS: ZOSYN VIAL 4.5 GRAMS 4.5 G in NS 50 ML IV + SPIKE MINIBAG* 50 ML IV SCH (21:46)
[2021-08-04] MEDS: ASCORBIC ACID INJ MULTI-DOSE VIAL 1,500 MG in NS 100 ML IV 100 ML IV SCH ×4 (02:13→21:33)
[2021-08-04] MEDS: ROBITUSSIN DM PO SCH ×5 (02:13→21:09)
[2021-08-04] MEDS: ZOSYN VIAL 4.5 GRAMS 4.5 G in NS 50 ML IV + SPIKE MINIBAG* 50 ML IV SCH (05:49)
[2021-08-04] MEDS: HumuLIN R SC PRN ×2 (05:50→12:42)
[2021-08-04 06:04] LABS: BASOPHILS # (AUTO) 0.1 X10^3/uL (0.0-0.1); BASOPHILS % (AUTO) 0.7 % (0.2-1.0); EOSINOPHILS % (AUTO) 0.3 % (0.9-2.9); HEMATOCRIT 38.5 % (42.0-54.0); HEMOGLOBIN 13.6 g/dL (13.5-18.0); LYMPHOCYTES # (AUTO) 1.4 X10^3/uL (1.3-2.9); LYMPHOCYTES % (AUTO) 12.2 % (21.0-51.0); MEAN CORPUSCULAR HEMOGLOBIN 29.4 pg (27.0-34.0); MEAN CORPUSCULAR HGB CONC 35.3 g/dL (33.0-35.0); MEAN CORPUSCULAR VOLUME 83.1 fL (80.0-100.0); MEAN PLATELET VOLUME 9.1 fL (7.4-11.0); MONOCYTES # (AUTO) 0.7 x10^3/uL (0.3-0.8); MONOCYTES % (AUTO) 5.9 % (0.0-13.0); NEUTROPHILS # (AUTO) 9.5 x10^3/uL (2.2-4.8); NEUTROPHILS % (AUTO) 80.9 % (42.0-75.0); PLATELET COUNT 422 X10^3/uL (150.0-450.0); RED BLOOD COUNT 4.64 X10^6/uL (4.7-6.0); RED CELL DISTRIBUTION WIDTH 13.2 % (11.6-16.5); WHITE BLOOD COUNT 11.8 X10^3/uL (3.6-10.0)
[2021-08-04 06:11] LABS: ALANINE AMINOTRANSFERASE 72 Units/L (12-78); ALBUMIN 2.6 g/dL (3.4-5.0); ALKALINE PHOSPHATASE 81 Units/L (46-116); BLOOD UREA NITROGEN 12 mg/dL (7-18); CALCIUM 7.7 mg/dL (8.5-10.1); CARBON DIOXIDE 26.5 mmol/L (21-32); CHLORIDE 98 mmol/L (98-107); COR CA(FOR HYPOALB) 8.8 mg/dL (8.5-10.1); COR NA(FOR HYPERGLY) 137 mmol/L (136-145); CREATININE 0.71 mg/dL (0.70-1.30); SODIUM 132 mmol/L (136-145); TOTAL PROTEIN 5.8 g/dL (6.4-8.2); eGFR NON BLACK RACES > 60 (>60)
[2021-08-04] MEDS: GLUCOTROL PO SCH ×2 (06:18→21:31)
[2021-08-04] MEDS: BROVANA IN SCH ×2 (08:25→20:25)
[2021-08-04] MEDS: PROVENTIL NEB TX 0.083% 2.5MG/ 3ML NEB SCH ×2 (08:25→20:25)
[2021-08-04] MEDS: PULMICORT NEB TX 0.5 MG NEB SCH ×2 (08:25→20:25)
[2021-08-04] MEDS: MUCOMYST (RESPIRATORY USE ONLY) NEB SCH ×2 (08:25→20:25)
[2021-08-04] MEDS ORDERED: SOLU-Medrol 40 MG VIAL IVP SCH (09:00)
[2021-08-04] MEDS: PEPCID TAB 40 MG PO SCH ×2 (09:31→21:32)
[2021-08-04] MEDS: ZINC SULFATE PO SCH ×2 (09:31→21:33)
[2021-08-04] MEDS: LOVENOX INJ 40 MG SYR SC SCH ×2 (09:32→21:15)
[2021-08-04] MEDS: VITAMIN A PO SCH (09:34)
[2021-08-04] MEDS: VITAMIN D3 125 mcg (5,000 UNITS) PO SCH (09:34)
[2021-08-04] MEDS: TUSSIONEX PENNKINETIC SUSP PO PRN ×2 (09:39→21:32)
[2021-08-04] MEDS: LEVEMIR SC SCH (12:10)
[2021-08-04] MEDS: TESSALON PERLES PO PRN (12:10)
--- NOTE | 2021-08-04 15:51 | PCM.PROG ---
Progress Note Progress Note for Day of Date of Exam: 08/04/21 Subjective Subjective: Patient seen at bedside, no acute events overnight. He reports feeling better. He is currently on nasal canula 4 L. He was transitioned yesterday and has been doing well on that. His sats do drop into the low-mid 80s with exertion and cough but recover quickly. He has mild dry cough. He reports normal appetite. Labs: WBC: 11.8 Hgb 13.6 Glucose 301 BUN/Cr: 12/0.71 AB.44/39/62/26.5 sats 92% CTA: no PE, bilateral opacities CXR(08/03/21): no change in diffuse bilateral pulmonary infiltrates. Blood Cx : neg Plan: Wean O2 as tolerated sats > 88%. Patient has received one dose of Actemra and completed Remdesivir. Continue nebs, pulmicort and IS. Continue smart vest. Continue anti-tussives, tessalon pearls and mucomyst. Continue IV antibiotics and taper solumedrol. Continue self proning and laying on the side. Continue vitamin support and lovenox. Continue levemir and continue SSI for hyperglycemia. Increase glipizide. Diabetic education as per staff. Monitor AM labs and imaging. Possible discharge tomorrow if doing well. Home O2 set up as per CM. Time spent for clinical assessment, reviewing labs/imaging, physical exam, decision making greater than 45 mins. Past Medical Family Social History Past Med/Fam/Surg Hx: No changes since H&P Allergies: Allergies No Known Drug Allergies Allergy (Verified 07/25/21 00:18) Review of Systems ROS: No change since H&P Vital Signs and I&O's Vital Signs: Temperature 98.0 F Pulse Rate [Left Brachial] 71 Pulse Rate 87 Respiratory Rate 18 Blood Pressure [Left Arm] 128/73 Blood Pressure 117/59 O2 Sat by Pulse Oximetry 93 Intake and Output: Intake & Output 08/01/21 08/02/21 08/03/21 08/04/21 23:59 23:59 23:59 23:59 Intake Total 4472 / 4472 2034 / 2034 2760 / 2760 980 / 980 Output Total 600 / 600 3180 / 3180 3050 / 3050 Balance 3872 / 3872 -1145 / -1145 -290 / -290 980 / 980 Physical Exam Oriented: Normal Eyes: Normal Ear: Normal Nose: Normal Throat: Normal Respiratory: Generalized and Diminished (improved air entry ) Cardiovascular: Normal Auscultation: Bowel Sounds: Normal Tenderness: Normal Skin: Normal Musculoskeletal: Normal Psychiatric: Normal Mood Description: Calm Speech Pattern: Clear and Appropriate Laboratory and Diagnostics Result Diagrams: 08/04/21 05:00 08/04/21 05:00 Labs: 07/24/21 23:49 Blood Blood Culture - Final 07/24/21 23:40 Blood Blood Culture - Final Laboratory WBC 11.8 X10^3/uL (3.6-10.0) H 08/04/21 05:00 RBC 4.64 X10^6/uL (4.7-6.0) L 08/04/21 05:00 Hgb 13.6 g/dL (13.5-18.0) 08/04/21 05:00 Hct 38.5 % (42.0-54.0) L 08/04/21 05:00 MCV 83.1 fL (80.0-100.0) 08/04/21 05:00 MCH 29.4 pg (27.0-34.0) 08/04/21 05:00 MCHC 35.3 g/dL (33.0-35.0) H 08/04/21 05:00 RDW 13.2 % (11.6-16.5) 08/04/21 05:00 Plt Count 422 X10^3/uL (150.0-450.0) 08/04/21 05:00 Plt Count Comment Increased (ADEQUATE) 08/01/21 04:59 MPV 9.1 fL (7.4-11.0) 08/04/21 05:00 Neut % (Auto) 80.9 % (42.0-75.0) H 08/04/21 05:00 Lymph % (Auto) 12.2 % (21.0-51.0) L 08/04/21 05:00 [place] % (Auto) 5.9 % (0.0-13.0) 08/04/21 05:00 Eos % (Auto) 0.3 % (0.9-2.9) L 08/04/21 05:00 Baso % (Auto) 0.7 % (0.2-1.0) 08/04/21 05:00 Neut # (Auto) 9.5 x10^3/uL (2.2-4.8) H 08/04/21 05:00 Lymph # (Auto) 1.4 X10^3/uL (1.3-2.9) 08/04/21 05:00 [place] # (Auto) 0.7 x10^3/uL (0.3-0.8) 08/04/21 05:00 Eos # (Auto) 0.0 x10^3/uL (0.0-0.2) 08/04/21 05:00 Baso # (Auto) 0.1 X10^3/uL (0.0-0.1) 08/04/21 05:00 Absolute Nucleated RBC 0.1 /100WBC 08/04/21 05:00 Total Counted 100 08/01/21 04:59 Neutrophils % (Manual) 96 % (39-76) H 08/01/21 04:59 Band Neutrophils % 2 % (0-10) 07/31/21 04:11 Lymphocytes % (Manual) 3 % (13-43) L 08/01/21 04:59 Monocytes % (Manual) 1 % (4-9) L 08/01/21 04:59 Eosinophils % (Manual) Cancelled 07/27/21 04:35 Basophils % (Manual) Cancelled 07/27/21 04:35 Metamyelocytes % Cancelled 07/27/21 04:35 Myelocytes % Cancelled 07/27/21 04:35 Promyelocytes % Cancelled 07/27/21 04:35 Nucleated RBCs Cancelled 07/27/21 04:35 Atypical Lymphocytes Cancelled 07/27/21 04:35 Blast Cells Cancelled 07/27/21 04:35 Smudge Cells Cancelled 07/27/21 04:35 Toxic Granulation Cancelled 07/27/21 04:35 Dohle Bodies Cancelled 07/27/21 04:35 Pat Rods Cancelled 07/27/21 04:35 Plt Clumps, EDTA Cancelled 07/27/21 04:35 Giant Platelets Cancelled 07/27/21 04:35 Plt Morphology Comment Normal (NORMAL) 08/01/21 04:59 RBC Morphology Normal (NORMAL) 08/01/21 04:59 Dimorphic RBCs Cancelled 07/27/21 04:35 Polychromasia Cancelled 07/27/21 04:35 Hypochromasia Cancelled 07/27/21 04:35 Poikilocytosis Cancelled 07/27/21 04:35 Basophilic Stippling Cancelled 07/27/21 04:35 Anisocytosis Cancelled 07/27/21 04:35 Microcytosis Cancelled 07/27/21 04:35 Macrocytosis Cancelled 07/27/21 04:35 Spherocytes Cancelled 07/27/21 04:35 Pappenheimer Bodies Cancelled 07/27/21 04:35 Sickle Cells Cancelled 07/27/21 04:35 Target Cells Cancelled 07/27/21 04:35 Tear Drop Cells Cancelled 07/27/21 04:35 Ovalocytes Cancelled 07/27/21 04:35 Stomatocytes Cancelled 07/27/21 04:35 Helmet Cells Cancelled 07/27/21 04:35 [employer] Bodies Cancelled 07/27/21 04:35 [place] Rings Cancelled 07/27/21 04:35 Sandip Cells Cancelled 07/27/21 04:35 Crenated Cell Cancelled 07/27/21 04:35 Acanthocytes (Spur) Cancelled 07/27/21 04:35 Rouleaux Cancelled 07/27/21 04:35 Schistocytes Cancelled 07/27/21 04:35 D-Dimer 1.20 ug/ml (0.0-0.57) H* 07/31/21 10:30 Sample Site Lr 08/01/21 05:00 ABG pH 7.440 (7.35-7.45) 08/01/21 05:00 ABG pCO2 39.0 mmHg (35.0-45.0) 08/01/21 05:00 ABG pO2 62.0 mmHg (80.0-100.0) L 08/01/21 05:00 ABG HCO3 26.5 mmol/L (22-26) H 08/01/21 05:00 ABG O2 Saturation 92.0 % (90-100) 08/01/21 05:00 ABG Base Excess 2.2 mmol/L (-2.0-2.0) H 08/01/21 05:00 Cyril Test Pos 08/01/21 05:00 A-a Gradient 531.0 mmHg 08/01/21 05:00 FiO2 90.0 08/01/21 05:00 Blood Gas Comments 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 08/01/21 05:00 Sodium 132 mmol/L (136-145) L 08/04/21 05:00 Corrected Sodium 137 mmol/L (136-145) 08/04/21 05:00 Potassium 4.0 mmol/L (3.5-5.1) 08/04/21 05:00 Chloride 98 mmol/L (98-107) 08/04/21 05:00 Carbon Dioxide 26.5 mmol/L (21-32) 08/04/21 05:00 BUN 12 mg/dL (7-18) 08/04/21 05:00 Creatinine 0.71 mg/dL (0.70-1.30) 08/04/21 05:00 Est GFR (MDRD) Af Amer > 60 (>60) 08/04/21 05:00 Est GFR (MDRD) Non-Af > 60 (>60) 08/04/21 05:00 Glucose 301 mg/dL (65-99) H 08/04/21 05:00 POC Glucose (mg/dL) 347 mg/dL (65-99) H 08/04/21 12:39 Hemoglobin A1c 11.4 % 07/31/21 19:32 Lactic Acid 1.7 mmol/L (0.4-2.0) 07/24/21 23:40 Calcium 7.7 mg/dL (8.5-10.1) L 08/04/21 05:00 Corrected Calcium 8.8 mg/dL (8.5-10.1) 08/04/21 05:00 Magnesium 2.4 mg/dL (1.7-2.9) 07/28/21 01:10 Total Bilirubin 0.50 mg/dL (0.2-1.0) 08/04/21 05:00 AST < 6 Units/L (15-37) L 08/04/21 05:00 ALT 72 Units/L (12-78) 08/04/21 05:00 Alkaline Phosphatase 81 Units/L (46-116) 08/04/21 05:00 Troponin I < 0.02 ng/mL (0-1.5) 07/25/21 03:42 C-Reactive Protein 2.70 mg/L (0-3.0) 08/02/21 05:27 Total Protein 5.8 g/dL (6.4-8.2) L 08/04/21 05:00 Albumin 2.6 g/dL (3.4-5.0) L 08/04/21 05:00 Globulin 3.2 g/dL (2.5-4.5) 08/04/21 05:00 Albumin/Globulin Ratio 0.8 Ratio (1.1-2.1) L 08/04/21 05:00 SARS-CoV-2 (PCR) Positive (NEGATIVE) A 07/25/21 01:46 Influenza Type A (PCR) Negative (NEGATIVE) 07/25/21 01:46 Influenza Type B (PCR) Negative (NEGATIVE) 07/25/21 01:46 RSV (PCR) Negative (NEGATIVE) 07/25/21 01:46 Plan (1) Pneumonia due to COVID-19 virus: Status: Acute (2) Acute respiratory failure with hypoxia: Status: Acute (3) Hyperglycemia: Status: Acute (4) Type 2 diabetes mellitus: Status: Acute Qualifiers: Diabetes mellitus complication status: without complication 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
[2021-08-04] MEDS: MUCOMYST 20% 200 MG/ML NEB SCH (17:30)
[2021-08-04] MEDS: SNACK - Diabetic Appropriate PO SCH (20:25)
[2021-08-05] MEDS: ASCORBIC ACID INJ MULTI-DOSE VIAL 1,500 MG in NS 100 ML IV 100 ML IV SCH ×2 (03:00→08:38)
[2021-08-05] MEDS: ROBITUSSIN DM PO SCH ×3 (03:08→05:59)
[2021-08-05] MEDS: GLUCOTROL PO SCH (05:59)
[2021-08-05 06:26] LABS: BASOPHILS # (AUTO) 0.1 X10^3/uL (0.0-0.1); BASOPHILS % (AUTO) 0.4 % (0.2-1.0); EOSINOPHILS # (AUTO) 0.3 x10^3/uL (0.0-0.2); EOSINOPHILS % (AUTO) 1.8 % (0.9-2.9); HEMATOCRIT 41.5 % (42.0-54.0); HEMOGLOBIN 14.3 g/dL (13.5-18.0); LYMPHOCYTES # (AUTO) 4.7 X10^3/uL (1.3-2.9); LYMPHOCYTES % (AUTO) 32.1 % (21.0-51.0); MEAN CORPUSCULAR HGB CONC 34.5 g/dL (33.0-35.0); MEAN PLATELET VOLUME 9.7 fL (7.4-11.0); MONOCYTES # (AUTO) 0.9 x10^3/uL (0.3-0.8); MONOCYTES % (AUTO) 6.2 % (0.0-13.0); NEUTROPHILS # (AUTO) 8.7 x10^3/uL (2.2-4.8); NEUTROPHILS % (AUTO) 59.5 % (42.0-75.0); PLATELET COUNT 288 X10^3/uL (150.0-450.0); RED BLOOD COUNT 4.95 X10^6/uL (4.7-6.0); RED CELL DISTRIBUTION WIDTH 13.4 % (11.6-16.5); WHITE BLOOD COUNT 14.7 X10^3/uL (3.6-10.0)
[2021-08-05 06:36] LABS: BLOOD UREA NITROGEN 19 mg/dL (7-18); CALCIUM 8.1 mg/dL (8.5-10.1); CARBON DIOXIDE 26.4 mmol/L (21-32); CHLORIDE 102 mmol/L (98-107); COR NA(FOR HYPERGLY) 140 mmol/L (136-145); CREATININE 0.74 mg/dL (0.70-1.30); SODIUM 136 mmol/L (136-145); eGFR NON BLACK RACES > 60 (>60)
[2021-08-05 07:56] LABS: PLATELET MORPHOLOGY COMMENT NORMAL (NORMAL)
[2021-08-05] MEDS: VITAMIN D3 125 mcg (5,000 UNITS) PO SCH (08:37)
[2021-08-05] MEDS: ZINC SULFATE PO SCH (08:37)
[2021-08-05] MEDS: PEPCID TAB 40 MG PO SCH (08:37)
[2021-08-05] MEDS: VITAMIN A PO SCH (08:38)
[2021-08-05] MEDS: LOVENOX INJ 40 MG SYR SC SCH (08:39)
[2021-08-05] MEDS: BROVANA IN SCH (08:45)
[2021-08-05] MEDS: MUCOMYST 20% 200 MG/ML NEB SCH (08:45)
[2021-08-05] MEDS: PULMICORT NEB TX 0.5 MG NEB SCH (08:45)
[2021-08-05] MEDS: PROVENTIL NEB TX 0.083% 2.5MG/ 3ML NEB SCH (08:45)
[2021-08-05] MEDS: MUCOMYST (RESPIRATORY USE ONLY) NEB SCH (08:46)
[2021-08-05] MEDS ORDERED: GLUCOPHAGE XR 24-HR PO SCH (09:00)
[2021-08-05] MEDS ORDERED: LEVEMIR SC SCH (09:00)
[2021-08-05] MEDS ORDERED: PREDNISONE TAB 20 MG PO SCH (09:00)
[2021-08-05] MEDS ORDERED: SOLU-Medrol 40 MG VIAL IVP SCH (09:00)
--- NOTE | 2021-08-05 09:08 | W.DIS.FURT ---
Summary of Discharge Admission Diagnosis Patient Problems (Updated 08/02/21 @ 12:51 by Kita Monaco) Pneumonia due to COVID-19 virus (Acute) U07.1, J12.82 Hypoxia (Acute) R09.02 Vital Signs: Vital Signs (72 hours) 08/02/21 12:00 08/02/21 16:00 08/02/21 20:00 Temperature 98.2 F 98.3 F 98.7 F Pulse Rate Pulse Rate [Left Brachial] 71 72 78 Respiratory Rate 20 20 20 Blood Pressure [Left Arm] 105/66 117/56 127/62 O2 Sat by Pulse Oximetry 87 L 94 L 95 08/02/21 21:20 08/03/21 00:00 08/03/21 04:00 Temperature 98.5 F 97.6 F Pulse Rate 75 Pulse Rate [Left Brachial] 80 60 Respiratory Rate 18 21 18 Blood Pressure [Left Arm] 124/71 137/62 O2 Sat by Pulse Oximetry 96 94 L 98 08/03/21 07:45 08/03/21 08:00 08/03/21 12:00 Temperature 97.8 F 98.4 F Pulse Rate 76 Pulse Rate [Left Brachial] 77 85 Respiratory Rate 20 20 Blood Pressure [Left Arm] 116/59 130/80 O2 Sat by Pulse Oximetry 86 L 91 L 88 L 08/03/21 16:00 08/03/21 20:00 08/03/21 20:07 Temperature 98.5 F 97.9 F Pulse Rate 87 Pulse Rate [Left Brachial] 88 84 Respiratory Rate 20 21 Blood Pressure [Left Arm] 126/70 123/68 O2 Sat by Pulse Oximetry 87 L 91 L 92 L 08/03/21 23:50 08/04/21 04:00 08/04/21 08:00 Temperature 98.4 F 98.0 F 98.6 F Pulse Rate Pulse Rate [Left Brachial] 92 H 71 90 Respiratory Rate 20 18 20 Blood Pressure [Left Arm] 123/60 128/73 117/72 O2 Sat by Pulse Oximetry 92 L 93 L 87 L 08/04/21 12:00 08/04/21 16:00 08/04/21 20:00 Temperature 98.9 F 98.6 F 98.2 F Pulse Rate Pulse Rate [Left Brachial] 88 85 80 Respiratory Rate 20 20 21 Blood Pressure [Left Arm] 100/58 115/61 137/70 O2 Sat by Pulse Oximetry 87 L 94 L 93 L 08/04/21 20:25 08/05/21 00:00 08/05/21 04:00 Temperature 98.5 F 98.5 F Pulse Rate 105 H Pulse Rate [Left Brachial] 88 91 H Respiratory Rate 20 20 Blood Pressure [Left Arm] 119/63 106/56 O2 Sat by Pulse Oximetry 90 L 96 93 L Labs: Laboratory Last Values WBC 14.7 X10^3/uL (3.6-10.0) H 08/05/21 05:45 RBC 4.95 X10^6/uL (4.7-6.0) 08/05/21 05:45 Hgb 14.3 g/dL (13.5-18.0) 08/05/21 05:45 Hct 41.5 % (42.0-54.0) L 08/05/21 05:45 MCV 84.0 fL (80.0-100.0) 08/05/21 05:45 MCH 29.0 pg (27.0-34.0) 08/05/21 05:45 MCHC 34.5 g/dL (33.0-35.0) 08/05/21 05:45 RDW 13.4 % (11.6-16.5) 08/05/21 05:45 Plt Count 288 X10^3/uL (150.0-450.0) 08/05/21 05:45 Plt Count Comment Adequate (ADEQUATE) 08/05/21 05:45 MPV 9.7 fL (7.4-11.0) 08/05/21 05:45 Neut % (Auto) 59.5 % (42.0-75.0) 08/05/21 05:45 Lymph % (Auto) 32.1 % (21.0-51.0) 08/05/21 05:45 [place] % (Auto) 6.2 % (0.0-13.0) 08/05/21 05:45 Eos % (Auto) 1.8 % (0.9-2.9) 08/05/21 05:45 Baso % (Auto) 0.4 % (0.2-1.0) 08/05/21 05:45 Neut # (Auto) 8.7 x10^3/uL (2.2-4.8) H 08/05/21 05:45 Lymph # (Auto) 4.7 X10^3/uL (1.3-2.9) H 08/05/21 05:45 [place] # (Auto) 0.9 x10^3/uL (0.3-0.8) H 08/05/21 05:45 Eos # (Auto) 0.3 x10^3/uL (0.0-0.2) H 08/05/21 05:45 Baso # (Auto) 0.1 X10^3/uL (0.0-0.1) 08/05/21 05:45 Absolute Nucleated RBC 0.5 /100WBC 08/05/21 05:45 Total Counted 100 08/01/21 04:59 Neutrophils % (Manual) 96 % (39-76) H 08/01/21 04:59 Band Neutrophils % 2 % (0-10) 07/31/21 04:11 Lymphocytes % (Manual) 3 % (13-43) L 08/01/21 04:59 Monocytes % (Manual) 1 % (4-9) L 08/01/21 04:59 Eosinophils % (Manual) Cancelled 07/27/21 04:35 Basophils % (Manual) Cancelled 07/27/21 04:35 Metamyelocytes % Cancelled 07/27/21 04:35 Myelocytes % Cancelled 07/27/21 04:35 Promyelocytes % Cancelled 07/27/21 04:35 Nucleated RBCs Cancelled 07/27/21 04:35 Atypical Lymphocytes Cancelled 07/27/21 04:35 Blast Cells Cancelled 07/27/21 04:35 Smudge Cells Cancelled 07/27/21 04:35 Toxic Granulation Cancelled 07/27/21 04:35 Dohle Bodies Cancelled 07/27/21 04:35 Pat Rods Cancelled 07/27/21 04:35 Plt Clumps, EDTA Few 08/05/21 05:45 Giant Platelets Cancelled 07/27/21 04:35 Plt Morphology Comment Normal (NORMAL) 08/05/21 05:45 RBC Morphology Normal (NORMAL) 08/05/21 05:45 Dimorphic RBCs Cancelled 07/27/21 04:35 Polychromasia Cancelled 07/27/21 04:35 Hypochromasia Cancelled 07/27/21 04:35 Poikilocytosis Cancelled 07/27/21 04:35 Basophilic Stippling Cancelled 07/27/21 04:35 Anisocytosis Cancelled 07/27/21 04:35 Microcytosis Cancelled 07/27/21 04:35 Macrocytosis Cancelled 07/27/21 04:35 Spherocytes Cancelled 07/27/21 04:35 Pappenheimer Bodies Cancelled 07/27/21 04:35 Sickle Cells Cancelled 07/27/21 04:35 Target Cells Cancelled 07/27/21 04:35 Tear Drop Cells Cancelled 07/27/21 04:35 Ovalocytes Cancelled 07/27/21 04:35 Stomatocytes Cancelled 07/27/21 04:35 Helmet Cells Cancelled 07/27/21 04:35 [place] Bodies Cancelled 07/27/21 04:35 [place] Rings Cancelled 07/27/21 04:35 Sandip Cells Cancelled 07/27/21 04:35 Crenated Cell Cancelled 07/27/21 04:35 Acanthocytes (Spur) Cancelled 07/27/21 04:35 Rouleaux Cancelled 07/27/21 04:35 Schistocytes Cancelled 07/27/21 04:35 D-Dimer 1.20 ug/ml (0.0-0.57) H* 07/31/21 10:30 Sample Site Lr 08/01/21 05:00 ABG pH 7.440 (7.35-7.45) 08/01/21 05:00 ABG pCO2 39.0 mmHg (35.0-45.0) 08/01/21 05:00 ABG pO2 62.0 mmHg (80.0-100.0) L 08/01/21 05:00 ABG HCO3 26.5 mmol/L (22-26) H 08/01/21 05:00 ABG O2 Saturation 92.0 % (90-100) 08/01/21 05:00 ABG Base Excess 2.2 mmol/L (-2.0-2.0) H 08/01/21 05:00 Cyril Test Pos 08/01/21 05:00 A-a Gradient 531.0 mmHg 08/01/21 05:00 FiO2 90.0 08/01/21 05:00 Blood Gas Comments 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0) 07/24/21 23:40 Calcium 8.1 mg/dL (8.5-10.1) L 08/05/21 05:45 Corrected Calcium 8.8 mg/dL (8.5-10.1) 08/04/21 05:00 Magnesium 2.4 mg/dL (1.7-2.9) 07/28/21 01:10 Total Bilirubin 0.50 mg/dL (0.2-1.0) 08/04/21 05:00 AST < 6 Units/L (15-37) L 08/04/21 05:00 ALT 72 Units/L (12-78) 08/04/21 05:00 Alkaline Phosphatase 81 Units/L (46-116) 08/04/21 05:00 Troponin I < 0.02 ng/mL (0-1.5) 07/25/21 03:42 C-Reactive Protein 2.70 mg/L (0-3.0) 08/02/21 05:27 Total Protein 5.8 g/dL (6.4-8.2) L 08/04/21 05:00 Albumin 2.6 g/dL (3.4-5.0) L 08/04/21 05:00 Globulin 3.2 g/dL (2.5-4.5) 08/04/21 05:00 Albumin/Globulin Ratio 0.8 Ratio (1.1-2.1) L 08/04/21 05:00 SARS-CoV-2 (PCR) Positive (NEGATIVE) A 07/25/21 01:46 Influenza Type A (PCR) Negative (NEGATIVE) 07/25/21 01:46 Influenza Type B (PCR) Negative (NEGATIVE) 07/25/21 01:46 RSV (PCR) Negative (NEGATIVE) 07/25/21 01:46 Reason For Visit: COVID PNEUMONIA, HYPOXIA Discharge Diagnosis All Active Problems (Updated 08/02/21 @ 12:51 by Kita Monaco) Type 2 diabetes mellitus (Acute) Hyperglycemia (Acute) Acute respiratory failure with hypoxia (Acute) Pneumonia due to COVID-19 virus (Acute) Hypoxia (Acute) Plan of Treatment: Continue with present treatment and follow up plan. Pt is to keep follow up appointment as instructed and take medications as ordered. Discharge Medications Discharge Medications: No Known Drug Allergies Allergy (Verified 07/25/21 00:18) CONTINUE taking the following medications NK 07/26/21 [History] New Prescriptions albuterol sulfate 1 ea NEB BIDRESP 15 Days #30 unit 08/05/21 [Rx] albuterol sulfate 2 puff INHALATION Q4-6H PRN #6.7 g 08/05/21 [Rx] dextromethorphan-guaifenesin 10 ml PO TID PRN 7 Days #200 ml 08/05/21 [Rx] glipizide 10 mg PO BIDBRS 30 Days #60 tab 08/05/21 [Rx] metformin 500 mg PO DAILY 30 Days #30 tab 08/05/21 [Rx] nebulizers #1 ea 08/05/21 [Rx] Discharge Disposition Assessment: No acute distress noted at discharge. Discharge Plan Discharge Plan Patient Disposition: 01 HOME, SELF-CARE Condition: Stable Health Concerns: Post Hospitalization: new medications and changes needed to prevent readmission or further decline. Pt educated and given instructions on all concerns. Care Plan Goals: Problem: Respiratory Complications Goal: Improved Uncomplicated Respiratory Status Instructions: Follow provided instructions. Follow up with primary physician as directed. Contact primary care physician or report to the closest Emergency Room if condition worsens. Plan of Treatment: Continue with present treatment and follow up plan. Pt is to keep follow up appointment as instructed and take medications as ordered. Assessment: No acute distress noted at discharge. Prescription drug monitoring program results: PDMP reviewed and no concerns identified Prescriptions: New metformin 500 mg Tablet Extended Release 24 Hr 500 mg PO DAILY 30 Days Qty: 30 RF: 1 glipizide 10 mg tablet 10 mg PO BIDBRS 30 Days Qty: 60 RF: 1 albuterol sulfate 2.5 mg /3 mL (0.083 %) Solution For Nebulization 1 ea NEB BIDRESP 15 Days Qty: 30 RF: 0 dextromethorphan-guaifenesin 10-100 mg/5 mL Liquid 10 ml PO TID PRN (Reason: Cough) 7 Days Qty: 200 RF: 0 albuterol sulfate 90 mcg/actuation HFA aerosol inhaler 2 puff inhalation Q4-6H PRNQty: 6.7 RF: 1 (DME) nebulizers Misc See Rx Instructions .ROUTE .MEDSUPPLY Qty: 1 RF: 0 No Action NK RF: 0 Follow ups/Referrals Follow ups/Referrals: Kita Monaco [Primary Care Provider] - 08/11/21 10:30 am Instructions Instructions: Incentive Spirometer, Hyperglycemia, [id number], Home Oxygen Use, Adult, Hand Washing, [id number], Upper Respiratory Infection, Adult, Avep-bk-Hihl, Hypoxia, Cough, Adult, Gecq-[id number], Form - Daily Diabetes Record, Diabetes Mellitus and Standards of Medical Care, Droplet Precautions, Kvlq-eg-[id number], Contact Precautions, Xjuw-[id number], How to Use a Nebulizer, Adult, Community-Acquired Pneumonia, Adult, Cuvd-io-Pcpt, Diabetes Mellitus and Nutrition Activity Restrictions/Additional Instructions: Things to buy over the counter: Glucose meter with strips to check blood sugar twice a day, every morning before medications and night before last meal. Pulse Oximeter to check oxygen level, needs to stay above 90% Stand Alone Forms: Excuse From Work or School, Excuse From Work, Precautions for COVID19, [facility], Patient Portal, Social Distancing
[2021-08-05 09:46] VITALS: BP 128/73
[2021-08-05 12:25] LABS: ASPARTATE AMINO TRANSFERASE 30 Units/L (15-37)
== END 2021-08-05 09:45 | disposition home or self-care (01) | DRG 177 ==
LOC: ER 23:22 → OBS 07-25 03:13 → MED/SURG 07-25 16:30
PROVIDERS: ADMIT Family Medicine; ATTEND Family Medicine
DX: E11.649 Type 2 diabetes mellitus with hypoglycemia without coma; U07.1 COVID-19; J96.01 Acute respiratory failure with hypoxia; J12.81 Pneumonia due to SARS-associated coronavirus